=== PATIENT | female | born 1990 | race Caucasian/White ===

== ENCOUNTER 2020-02-14 10:02 | Outpatient (REF) | payer MEDICAID, SELFPAY ==
[2020-02-15 09:28] LABS: CT PCR NOT DETECTED (Not Detect.); NG PCR NOT DETECTED (Not Detect.)
== END 2020-02-14 10:03 | disposition home or self-care (01) ==
LOC: HO.LAB 10:02
PROVIDERS: Visit Provider Advanced Practice Midwife
DX: Z30.430 Encounter for insertion of intrauterine contraceptive device (principal); Z79.01 Long term (current) use of anticoagulants
CPT/HCPCS: 58300; 87491; 87591

== ENCOUNTER 2020-03-02 11:19 | Outpatient (REF) | payer MEDICAID, SELFPAY ==
--- NOTE | 2020-03-02 11:23 | US_ITS ---
EXAMINATION: US PELVIS COMPLETE. CLINICAL INFORMATION: Transvaginal and transabdominal ultrasound of the pelvis is performed. COMPARISON: Transvaginal ultrasound pelvis 12/29/2019. TECHNIQUE: Routine transabdominal and transvaginal ultrasound of the pelvis is performed. FINDINGS: The uterus is anteverted, anteflexed measuring 7.8 cm in length, 4.3 cm in AP and 4.7 cm wide. There is intrauterine IUD noted in characterization. No focal uterine lesions seen. There are small nabothian cysts in the cervix. Right ovary measures 4.0 x 2.0 x 2.3 cm volume) 6 mL. There is anechoic cyst measuring 2.1 x 1.7 x 1.7 cm. Previously right ovary measured 2.2 x 2.1 x 1.4 cm. Left ovary measures 2.8 x 1.1 x 1.4 cm and volume 2.9 mL. There is a hyperechoic focal area in the left ovary measuring 0.5 x 0.3 x 0.4 cm. Previously left ovary measured 2.6 x 2.4 x 2.2 cm. There is no free fluid in cul-de-sac. US/US pelvic complete IMPRESSION: Anteverted uterus with IUD in correct position. Small nabothian cysts in cervix. Simple cyst right ovary. Hyperechoic focal area in the left ovary, likely ruptured complex cyst seen previously.
--- NOTE | 2020-03-02 11:23 | US_ITS ---
EXAMINATION: US PELVIS COMPLETE. CLINICAL INFORMATION: Transvaginal and transabdominal ultrasound of the pelvis is performed. COMPARISON: Transvaginal ultrasound pelvis 12/29/2019. TECHNIQUE: Routine transabdominal and transvaginal ultrasound of the pelvis is performed. FINDINGS: The uterus is anteverted, anteflexed measuring 7.8 cm in length, 4.3 cm in AP and 4.7 cm wide. There is intrauterine IUD noted in characterization. No focal uterine lesions seen. There are small nabothian cysts in the cervix. Right ovary measures 4.0 x 2.0 x 2.3 cm volume) 6 mL. There is anechoic cyst measuring 2.1 x 1.7 x 1.7 cm. Previously right ovary measured 2.2 x 2.1 x 1.4 cm. Left ovary measures 2.8 x 1.1 x 1.4 cm and volume 2.9 mL. There is a hyperechoic focal area in the left ovary measuring 0.5 x 0.3 x 0.4 cm. Previously left ovary measured 2.6 x 2.4 x 2.2 cm. There is no free fluid in cul-de-sac. US/US transvaginal IMPRESSION: Anteverted uterus with IUD in correct position. Small nabothian cysts in cervix. Simple cyst right ovary. Hyperechoic focal area in the left ovary, likely ruptured complex cyst seen previously.
== END 2020-03-02 11:20 | disposition home or self-care (01) ==
LOC: HO.US 11:19
PROVIDERS: Visit Provider Advanced Practice Midwife
DX: N83.209 Unspecified ovarian cyst, unspecified side (principal); Z97.5 Presence of (intrauterine) contraceptive device
CPT/HCPCS: 76830; 76856

== ENCOUNTER 2020-04-14 10:28 | Outpatient (REF) | payer MEDICAID, SELFPAY ==
[2020-04-16 11:59] LABS: BV Int Neg Control Negative (Negative); BV Int Pos Control Positive (Positive)
[2020-04-23 15:45] LABS: C. trachomatis RNA TMA NOT DETECTED
[2020-04-23 15:46] LABS: N. gonorrhoeae RNA TMA NOT DETECTED
== END 2020-04-14 10:29 | disposition home or self-care (01) ==
LOC: HO.LAB 10:28
PROVIDERS: Visit Provider Obstetrics & Gynecology
DX: B37.3 Candidiasis of vulva and vagina (principal); R31.29 Other microscopic hematuria; Z11.8 Encounter for screening for other infectious and parasitic diseases; Z11.3 Encounter for screening for infections with a predominantly sexual mode of transmission; Z97.5 Presence of (intrauterine) contraceptive device
CPT/HCPCS: 87086; 87147; 87480; 87491; 87510; 87591; 87660; 99212

== ENCOUNTER 2020-05-01 15:22 | Outpatient (REF) | payer MEDICAID, SELFPAY ==
[2020-05-01 18:30] LABS: Hematocrit 37.5 % (37-47); Hemoglobin 11.7 g/dl (12.0-16.0); Mean Corpuscular HGB Conc 31.2 g/dl (31.0-35.0); Mean Corpuscular Volume 86.4 fL (80-98); Mean Platelet Volume 9.8 fL (9.4-12.3); Platelet Count 350 X10*3/uL (160-400); Red Blood Count 4.34 X10*6/uL (4.20-5.50); Red Cell Distribution Width 14.1 % (11.0-16.0); White Blood Count 8.5 X10*3/uL (4.8-10.8)
[2020-05-03 21:42] LABS: C. trachomatis RNA TMA NOT DETECTED (NOT DETECTED); N. gonorrhoeae RNA TMA NOT DETECTED (NOT DETECTED)
== END 2020-05-01 15:23 | disposition home or self-care (01) ==
LOC: HO.LAB 15:22
PROVIDERS: Visit Provider Obstetrics & Gynecology
DX: N92.0 Excessive and frequent menstruation with regular cycle (principal); B37.3 Candidiasis of vulva and vagina; Z30.09 Encounter for other general counseling and advice on contraception; Z79.899 Other long term (current) drug therapy; Z86.711 Personal history of pulmonary embolism
CPT/HCPCS: 36415; 81025; 85027; 87491; 87591; 99212

== ENCOUNTER → 2020-05-04 14:54 | Outpatient (BNVA) | payer MEDICAID, SELFPAY | PROVIDERS: Visit Provider Obstetrics & Gynecology | DX: Z76.89 Persons encountering health services in other specified circumstances (principal) ==

== ENCOUNTER 2020-10-19 14:19 | Outpatient (REF) | payer MEDICAID, SELFPAY ==
[2020-10-20 09:01] LABS: CT PCR NOT DETECTED (Not Detect.); NG PCR NOT DETECTED (Not Detect.)
== END 2020-10-19 14:20 | disposition home or self-care (01) ==
LOC: HO.LAB 14:19
PROVIDERS: Visit Provider Obstetrics & Gynecology
DX: Z30.09 Encounter for other general counseling and advice on contraception (principal)
CPT/HCPCS: 87491; 87591; 99212

== ENCOUNTER → 2020-12-12 15:26 | Outpatient (BNVA) | payer MEDICAID, SELFPAY | PROVIDERS: Visit Provider Obstetrics & Gynecology ==

== ENCOUNTER → 2021-01-02 14:34 | Outpatient (BNVA) | payer MEDICAID, SELFPAY | PROVIDERS: Visit Provider Obstetrics & Gynecology | DX: Z30.430 Encounter for insertion of intrauterine contraceptive device (principal) | CPT/HCPCS: 58300; J7300 ==

== ENCOUNTER → 2021-04-17 09:14 | Outpatient (BNVA) | payer MEDICAID, SELFPAY | PROVIDERS: Visit Provider Obstetrics & Gynecology | DX: Z30.431 Encounter for routine checking of intrauterine contraceptive device (principal) | CPT/HCPCS: 99212 ==

== ENCOUNTER → 2021-08-31 13:53 | Outpatient (BNVA) | payer MEDICAID, SELFPAY | PROVIDERS: Visit Provider Nurse Practitioner | DX: K21.9 Gastro-esophageal reflux disease without esophagitis (principal); K64.9 Unspecified hemorrhoids; R31.29 Other microscopic hematuria; D64.9 Anemia, unspecified; N92.0 Excessive and frequent menstruation with regular cycle | CPT/HCPCS: 99212 ==

== ENCOUNTER 2021-09-04 14:40 | Outpatient (REF) | payer MEDICAID, SELFPAY ==
[2021-09-04 14:52] LABS: MANUAL DIFF FLAG NO
[2021-09-04 14:54] LABS: Basophils Absolute Auto 0.1 X10*3/uL (0.0-0.2); Basophils Percent Auto 0.6 % (0-2); Eosinophils Absolute Auto 0.1 X10*3/uL (0.0-0.4); Eosinophils Percent Auto 1.6 % (0-4); Hemoglobin 11.4 g/dl (12.0-16.0); Imm Gran Abs Auto 0.02 X10*3/uL (0.00-0.03); Imm Gran Pct Auto 0.2 % (0.0-0.4); Lymphocytes Absolute Auto 1.9 X10*3/uL (1.2-4.9); Lymphocytes Percent Auto 23.9 % (20-40); Mean Corpuscular HGB Conc 31.7 g/dl (31.0-35.0); Mean Corpuscular Hemoglobin 27.5 pg (27.0-33.0); Mean Corpuscular Volume 86.7 fL (80.0-98.0); Mean Platelet Volume 9.3 fL (9.4-12.3); Monocytes Absolute Auto 0.7 X10*3/uL (0.1-1.2); Neutrophils Absolute Auto 5.2 x10*3/uL (2.0-8.3); Neutrophils Percent Auto 64.7 % (45-73); Platelet Count 323 X10*3/uL (160-400); Red Blood Count 4.15 X10*6/uL (4.20-5.50); Red Cell Distribution Width 14.4 % (11.0-16.0); White Blood Count 8.1 X10*3/uL (4.8-10.8)
[2021-09-04 15:20] LABS: Alanine Aminotransferase 22 U/L (0-31); Albumin Level 4.2 g/dL (3.5-5.0); Alkaline Phosphatase 74 U/L (39-117); Anion Gap 10 (12-20); Aspartate Amino Transferase 23 U/L (5-31); Bilirubin Total 0.2 mg/dL (0.0-1.0); Blood Urea Nitrogen 13 mg/dL (9-16); Calcium 9.4 mg/dL (8.4-10.2); Carbon Dioxide 27 mmol/L (22-29); Chloride 105 mmol/L (96-108); Estimated Glomerular Filt Rate > 60; Glucose Random 86 mg/dL (60-115); Potassium 3.8 mmol/L (3.3-5.1); Sodium 138 mmol/L (135-145); Total Protein 7.2 g/dL (6.5-8.0)
[2021-09-04 15:36] LABS: Ferritin 18 ng/mL (10-122)
== END 2021-09-04 14:41 | disposition home or self-care (01) ==
LOC: HO.LAB 14:40
PROVIDERS: Visit Provider Nurse Practitioner
DX: D64.9 Anemia, unspecified (principal); K64.9 Unspecified hemorrhoids; N92.0 Excessive and frequent menstruation with regular cycle; R31.29 Other microscopic hematuria
CPT/HCPCS: 36415; 80053; 82728; 85025

== ENCOUNTER 2022-11-06 11:35 | Outpatient (REF) | payer MEDICAID, SELFPAY ==
[2022-11-06 12:40] LABS: MANUAL DIFF FLAG NO
[2022-11-06 12:57] LABS: Basophils Absolute Auto 0.1 X10*3/uL (0.0-0.2); Basophils Percent Auto 0.8 % (0-2); Eosinophils Absolute Auto 0.2 X10*3/uL (0.0-0.4); Eosinophils Percent Auto 2.9 % (0-4); Hematocrit 33.5 % (37.0-47.0); Hemoglobin 10.2 g/dl (12.0-16.0); Imm Gran Abs Auto 0.01 X10*3/uL (0.00-0.03); Imm Gran Pct Auto 0.2 % (0.0-0.4); Lymphocytes Absolute Auto 1.6 X10*3/uL (1.2-4.9); Lymphocytes Percent Auto 26.5 % (20-40); Mean Corpuscular HGB Conc 30.4 g/dl (31.0-35.0); Mean Corpuscular Hemoglobin 24.5 pg (27.0-33.0); Mean Corpuscular Volume 80.5 fL (80.0-98.0); Mean Platelet Volume 9.7 fL (9.4-12.3); Monocytes Absolute Auto 0.6 X10*3/uL (0.1-1.2); Monocytes Percent Auto 9.5 % (2-11); Neutrophils Absolute Auto 3.7 x10*3/uL (2.0-8.3); Neutrophils Percent Auto 60.1 % (45-73); Platelet Count 367 X10*3/uL (160-400); Red Blood Count 4.16 X10*6/uL (4.20-5.50); Red Cell Distribution Width 16.5 % (11.0-16.0); White Blood Count 6.1 X10*3/uL (4.8-10.8)
[2022-11-06 14:22] LABS: Alanine Aminotransferase 67 U/L (0-31); Albumin Level 4.3 g/dL (3.5-5.0); Alkaline Phosphatase 105 U/L (39-117); Anion Gap 12 (12-20); Aspartate Amino Transferase 39 U/L (5-31); Bilirubin Total 0.3 mg/dL (0.0-1.0); Blood Urea Nitrogen 18 mg/dL (9-16); Calcium 9.8 mg/dL (8.4-10.2); Carbon Dioxide 27 mmol/L (22-29); Chloride 104 mmol/L (96-108); Estimated Glomerular Filt Rate > 60; Glucose Random 86 mg/dL (60-115); Potassium 3.8 mmol/L (3.3-5.1); Sodium 139 mmol/L (135-145); Total Protein 7.6 g/dL (6.5-8.0)
[2022-11-06 14:37] LABS: Ferritin 25 ng/mL (10-122)
== END 2022-11-06 11:36 | disposition home or self-care (01) ==
LOC: HO.LAB 11:35
PROVIDERS: Visit Provider Nurse Practitioner
DX: D64.9 Anemia, unspecified (principal); K21.9 Gastro-esophageal reflux disease without esophagitis; K64.9 Unspecified hemorrhoids; N92.0 Excessive and frequent menstruation with regular cycle; R31.29 Other microscopic hematuria
CPT/HCPCS: 36415; 80053; 82728; 85025; 99213

== ENCOUNTER 2022-11-06 11:35 | Outpatient (AMB) | payer MEDICAID, SELFPAY ==
--- NOTE | 2022-11-06 11:43 | A.OFFVIS_ITS ---
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 She tells me she had a baby, then she had clots in my lungs. They do not know why this happened. It was after she gave . She says her hemorrhoids are resolved, but in the next sentence she says she is having rectal bleeding and needs a colonoscopy.? She is on omeprazole 40mg qd but has breakthrough GERD about 3 times a week. She can not ID any particular food triggers for this, she avoids spicy foods and most GERD triggers. She has pain at the epigastric area when she has pain. There is no time of day. She denies CIC or diarrhea.? She says she has been on oral iron supplement for a month or 2. She is taking her o2o in the afternoon, and I recommend that she take it qam ac instead. She asks if o2o causes cancer, and I tell her that retirement studies do not indicate this. I think she has this medicine confused with the zantac recall a while ago. We will give her some famotidine. She says that her doctors concerned about her anemia and that she needs an EGD and colonoscopy.? However, we did an EGD and colonoscopy in 2017 for exactly the same reasons and this is a relatively young woman with a history of heavy menses, microscopic hematuria and likely poor iron intake.? I do not think that we should be subjecting her to more procedures just on this basis.? I am going to get some fit testing and recheck her CBC and her ferritin levels and will go from there.? I also think it is very likely that she still has bleeding hemorrhoids especially since she just gave .? It is also likely since she had blood clots that she was treated with some level of anticoagulation recently. Return office visit in 6 weeks. (2) Hemorrhoids: ?Comment: With history of bleeding ?Code(s): K64.9 - Unspecified hemorrhoids (3) Menorrhagia: ?Code(s): N92.0 - Excessive and frequent menstruation with regular cycle (4) Microscopic hematuria: ?Code(s): R31.29 - Other microscopic hematuria (5) Anemia: ?Code(s): D64.9 - Anemia, unspecified ? ? ? Orders: Orders FITS Today D64.9 - Anemia, un specified, K64.9 - Unspecified hemor rhoids, N92.0 - Ex cessive and freque nt menstruation wi th regular cycle, R31.29 - Other claudia roscopic hematuria ? Comprehensive Met. Panel Today D64.9 - Anemia, un specified, K64.9 - Unspecified hemor rhoids, N92.0 - Ex cessive and freque nt menstruation wi th regular cycle, R31.29 - Other claudia roscopic hematuria ? Ferritin Today D64.9 - Anemia, un specified, K64.9 - Unspecified hemor rhoids, N92.0 - Ex cessive and freque nt menstruation wi th regular cycle, R31.29 - Other claudia roscopic hematuria ? Complete Blood Cou nt Auto Diff Today D64.9 - Anemia, un specified, K64.9 - Unspecified hemor rhoids, N92.0 - Ex cessive and freque nt menstruation wi th regular cycle, R31.29 - Other claudia roscopic hematuria ? Medications: New famotidine 20 mg? PO DAILY 3 0 tabs 3RF D64.9 - Anemia, un specified ?Patient Instructions: Kaylee Richard Quiero hacerte algunas pruebas para tu anemia. La marcella?n m?s com?n de la anemia en stan rick de parada edad es stan dieta inadecuada y stan menstruaci?n abundante. Contin?e con man pastillas de sara. Le pido que candace algunos estudios de heces para verificar si est? perdiendo sara en man heces y isaac algunos an?lisis de laboratorio b?sicos. Para la acidez estomacal, cambie parada omeprazol y t?biswas a primera hora de la ma?callie con el est?stephanie vac?o. Estoy enviando famotidina para que la tome seg?n sea necesario si tiene alg?n s?ntoma importante. Quiero verlo en 6 semanas para repasar los laboratorios y merlene c?mo le est? funcionando eusebio cambio en el medicamento LABS: Laboratory Tests 09/04/21 09/04/21 14:49 14:49 WBC 8.1 Hgb 11.4 L Hct 36.0 L MCV 86.7 MCH 27.5 Estimated GFR > 60 Ferritin 18 Total Bilirubin 0.2 AST 23 D ALT 22 FITS TEST NOT OBTAINED TODAY'S VISIT Citizen Of [place] #[id number] She says she did the FIT test but the lab told me it wasn't good. We can repeat this. She has been having rectal bleeding still when I have to push. She says her heavy menses have normalized with her IUD. She stopped taking the oral iron about a month ago r/t constipation. We can help with this if we need to re start the oral iron. FROM LAST NOTE She says that her doctors concerned about her anemia and that she needs an EGD and colonoscopy.? However, we did an EGD and colonoscopy in 2017 for exactly the same reasons and this is a relatively young woman with a history of heavy menses, microscopic hematuria and likely poor iron intake.? I do not think that we should be subjecting her to more procedures just on this basis. She slipped on her cellar stairs and has bruising on her right face/cheek and under eye. She is no longer on blood thinners. She has a history of a DVT. ROV 3 weeks. [facility] Medical History Hx of anxiety disorder Hx of chronic sinusitis Hx pulmonary embolism Pre-eclampsia, Surgical History Hx of appendectomy Hx of cholecystectomy Family History Mother Family hx of hypertension Emphysema of lung Son Family history of microcephaly Maternal Grandmother Family history of breast cancer Stroke Father History of stomach cancer Social History Alcohol intake: former Female Reproductive History Menstrual Age of Menarche: 11 Review of Systems Const Denies fatigue, Denies fever(s), Denies night sweats, Denies poor appetite and Denies weight loss Eyes Details: glasses Reports requires corrective lenses ENT Reports Normal hearing present, Denies dental pain, Denies dysphagia, Denies hearing loss, Denies mouth pain, Denies odynophagia, Denies throat swelling, Denies tongue swelling and Reports other (Dentition adequate) Card Reports no additional complaints Resp Reports no additional complaints GI Denies abdominal pain, Denies melena, Denies bloating, Denies hematochezia, Denies constipation, Denies GI cramping, Denies dysphagia, Denies excessive flatus, Denies early satiety, Reports heartburn, Denies diarrhea, Denies nausea, Denies odynophagia, Denies vomiting and Denies hematemesis Skin/Breast Denies pruritus, Denies lesions, Denies rash and Denies jaundice Neuro Reports Normal hearing present and Denies Abnormal speech present Endo Denies fatigue Aller/Immun Denies throat swelling and Denies tongue swelling Physical Exam Vital Signs: Last Vital Signs Pulse 95 11/06/22 11:46 BP 99/57 L 11/06/22 11:46 BMI result Body Mass Index 26.2 Const General: cooperative, no acute distress, well developed and well groomed Nutritional Appearance: average body habitus and well nourished Orientation/consciousness: oriented to person, oriented to place and oriented to time Limitations: language barrier HEENT Other: Have taller size round bruise in purple stage of healing on her right cheek linear bruise underneath her right eye Head: Yes normocephalic Eyes General: appearance normal, both eyes and all related structures Pupils: Equal, round and reactive pupils present Neck Neck: Yes normal visual inspection and Yes no lymphadenopathy Thyroid: Thyroid normal Resp Effort & Inspection: normal respiratory effort and able to speak in complete sentences Auscultation: clear to auscultation bilaterally Cardio Rate: regular rate Rhythm: regular rhythm Heart sounds: Normal, physiologic split S2 sound present Peripheral pulses: radial pulses present and posterior tibial pulses present GI Inspection: No distended and No Abdominal panniculus present Palpation (GI): Soft to palpation, nontender, no guarding, not rigid and No hepatosplenomegaly present Percussion: Yes normal to percussion Auscultation: normal bowel sounds Rectal Exam - Female: deferred Skin General skin exam: no rashes or lesions noted, turgor normal, skin not dry, no jaundice, No spider nevi and no striae Rashes: no rashes Nails: normal Neuro General: oriented to person, oriented to place and oriented to time Cranial nerves: Yes Equal, round and reactive pupils present and Yes Normal hearing present Speech: No Abnormal speech present Extrem General: Yes normal to inspection, No clubbing, No cyanosis and No edema Psych Appearance: grossly normal and well kempt Mental Status: mental status grossly normal Speech and movement: Normal speech and movement present Affect: normal affect Attitude: cooperative Thought process: Normal thought process present and not confabulating Thought content: Normal thought content present Insight: Limited insight present (Psych) Judgement: Limited judgement present (Psych) Results Reviewed Results Reviewed: Laboratory Tests 09/04/21 09/04/21 14:49 14:49 WBC 8.1 Hgb 11.4 L Hct 36.0 L MCV 86.7 MCH 27.5 Estimated GFR > 60 Ferritin 18 Total Bilirubin 0.2 AST 23 D ALT 22 FITS TEST NOT OBTAINED Assessment & Plan Assessment & Plan (1) GERD (gastroesophageal reflux disease): Comment: 2017 scope focal esophagitis Code(s): K21.9 - Gastro-esophageal reflux disease without esophagitis Plan: Citizen Of [place] #[id number] She says she did the FIT test but the lab told me it wasn't good. We can repeat this. She has been having rectal bleeding still when I have to push. She says her heavy menses have normalized with her IUD. She stopped taking the oral iron about a month ago r/t constipation. We can help with this if we need to re start the oral iron. FROM LAST NOTE She says that her doctors concerned about her anemia and that she needs an EGD and colonoscopy.? However, we did an EGD and colonoscopy in 2017 for exactly the same reasons and this is a relatively young woman with a history of heavy menses, microscopic hematuria and likely poor iron intake.? I do not think that we should be subjecting her to more procedures just on this basis. She slipped on her cellar stairs and has bruising on her right face/cheek and under eye. She is no longer on blood thinners. She has a history of a DVT. ROV 3 weeks. (2) Hemorrhoids: Comment: With history of bleeding Code(s): K64.9 - Unspecified hemorrhoids (3) Anemia: Code(s): D64.9 - Anemia, unspecified (4) Menorrhagia: Code(s): N92.0 - Excessive and frequent menstruation with regular cycle (5) Microscopic hematuria: Code(s): R31.29 - Other microscopic hematuria Orders: Orders Comprehensive Met. Panel Today D64.9 - Anemia, unspecified, K21.9 - Gastro-esophageal reflux disease without esophagitis Ferritin Today D64.9 - Anemia, unspecified, K21.9 - Gastro-esophageal reflux disease without esophagitis Complete Blood Count Auto Diff Today D64.9 - Anemia, unspecified, K21.9 - Gastro-esophageal reflux disease without esophagitis FITS Today D64.9 - Anemia, unspecified, K21.9 - Gastro-esophageal reflux disease without esophagitis Medications: Changed From omeprazole 40 mg PO DAILY To omeprazole 40 mg (2 x 20 mg) PO QAM 30 caps 6RF Refilled famotidine 20 mg PO DAILY 30 tabs 6RF Coding Level of Care Code Est Pt Level 3 (16270) Diagnoses GERD (gastroesophageal reflux disease) K21.9 Hemorrhoids K64.9 Anemia D64.9 Menorrhagia N92.0 Microscopic hematuria R31.29
[2022-11-06 11:46] VITALS: BP 99/57; PULSE 95; BMI 26.2
== END 2022-11-06 12:10 | disposition home or self-care (01) ==
PROVIDERS: Visit Provider Nurse Practitioner
DX: K21.9 Gastro-esophageal reflux disease without esophagitis (principal); K64.9 Unspecified hemorrhoids; D64.9 Anemia, unspecified; N92.0 Excessive and frequent menstruation with regular cycle; R31.29 Other microscopic hematuria
CPT/HCPCS: 99213

== ENCOUNTER 2022-12-10 11:26 | Outpatient (AMB) | payer MEDICAID, SELFPAY ==
[2022-12-10 11:28] VITALS: BP 93/59; PULSE 73; BMI 26.4
--- NOTE | 2022-12-10 11:28 | A.OFFVIS_ITS ---
Intake Vital Signs 12/10/22 11:28 Height 5 ft 3 in Weight 149 lb 0.52 oz BMI 26.4 BP 93/59 L Blood Pressure Location Lt brachial Position Sitting Pulse 73 Intake Visit Reasons: 3 week fu Intake Note: Patient presents to in office visit today in 3 week follow up of GERD. CC: Patient reports that medications has been helping with symptoms. 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 We can repeat this. She has been having rectal bleeding still when I have to push. She says her heavy menses have normalized with her IUD. She stopped taking the oral iron about a month ago r/t constipation. We can help with this if we need to re start the oral iron. FROM LAST NOTE She says that her doctors concerned about her anemia and that she needs an EGD and colonoscopy.? However, we did an EGD and colonoscopy in 2017 for exactly the same reasons and this is a relatively young woman with a history of heavy menses, microscopic hematuria and likely poor iron intake.? I do not think that we should be subjecting her to more procedures just on this basis. She slipped on her cellar stairs and has bruising on her right face/cheek and under eye. She is no longer on blood thinners.? She has a history of a DVT. ROV 3 weeks. (2) Hemorrhoids: ?Comment: With history of bleeding ?Code(s): K64.9 - Unspecified hemorrhoids (3) Anemia: ?Code(s): D64.9 - Anemia, unspecified (4) Menorrhagia: ?Code(s): N92.0 - Excessive and frequent menstruation with regular cycle (5) Microscopic hematuria: ?Code(s): R31.29 - Other microscopic hematuria ? ? ? Orders: Orders Comprehensive Met. Panel Today D64.9 - Anemia, un specified, K21.9 - Gastro-esophageal reflux disease wi thout esophagitis ? Ferritin Today D64.9 - Anemia, un specified, K21.9 - Gastro-esophageal reflux disease wi thout esophagitis ? Complete Blood Cou nt Auto Diff Today D64.9 - Anemia, un specified, K21.9 - Gastro-esophageal reflux disease wi thout esophagitis ? FITS Today D64.9 - Anemia, un specified, K21.9 - Gastro-esophageal reflux disease wi thout esophagitis ? Medications: Changed From omeprazole 40 mg? PO DAILY ? ? To omeprazole 40 mg (2 x 20 mg) PO QAM 30 caps 6RF ? ? Refilled famotidine 20 mg? PO DAILY 30 tabs 6RF ? ? . A LABS: Laboratory Tests 11/06/22 11/06/22 12:39 12:39 WBC 6.1 RBC 4.16 L Hgb 10.2 L Hct 33.5 L MCV 80.5 MCH 24.5 L Plt Count 367 Estimated GFR > 60 Ferritin 25 Total Bilirubin 0.3 AST 39 H ALT 67 H Alkaline Phosphata se 105 FIT TEST NOT OBTAINED TODAY'S VISIT She is due for a colonoscopy r/t TA. She is agreeable to having this scheduled. She has not yet performed the FIT test, the last time it was not done properly. She has the cards, but has not yet performed it. I encourage her to do so. She has not been taking oral iron, I will order this for her. She continues on her omeprazole and famotidine with good control of her GERD. There are no prior problems with anesthesia or sedation. There are no current cardiac or respiratory problems. She has a history of pulmonary embolism after giving related to pre eclampsia.. NO ID problems She has a hx of TA and FHX of crc. Return office visit in 3 months. [facility] Medical History Hx of anxiety disorder Hx of chronic sinusitis Hx pulmonary embolism Pre-eclampsia, Surgical History Hx of appendectomy Hx of cholecystectomy Family History Mother Family hx of hypertension Emphysema of lung Son Family history of microcephaly Maternal Grandmother Family history of breast cancer Stroke Father History of stomach cancer Social History Alcohol intake: former Patient Tobacco Use Status: Never used Tobacco Female Reproductive History Menstrual Age of Menarche: 11 Review of Systems Const Denies fatigue, Denies fever(s), Denies night sweats, Denies poor appetite and Denies weight loss Eyes Details: glasses Reports requires corrective lenses ENT Reports Normal hearing present, Denies dental pain, Denies dysphagia, Denies hearing loss, Denies mouth pain, Denies odynophagia, Denies throat swelling, Denies tongue swelling and Reports other (Dentition adequate) Card Reports no additional complaints Resp Reports no additional complaints GI Denies abdominal pain, Denies melena, Denies bloating, Denies hematochezia, Denies constipation, Denies GI cramping, Denies dysphagia, Denies excessive flatus, Denies early satiety, Reports heartburn, Denies diarrhea, Denies nausea, Denies odynophagia, Denies vomiting and Denies hematemesis Skin/Breast Denies pruritus, Denies lesions, Denies rash and Denies jaundice Neuro Reports Normal hearing present and Denies Abnormal speech present Endo Denies fatigue Aller/Immun Denies throat swelling and Denies tongue swelling Physical Exam Vital Signs: Last Vital Signs Pulse 73 12/10/22 11:28 BP 93/59 L 12/10/22 11:28 BMI result Body Mass Index 26.4 Const General: cooperative, no acute distress, well developed and well groomed Nutritional Appearance: average body habitus and well nourished Orientation/consciousness: oriented to person, oriented to place and oriented to time Limitations: No language barrier HEENT Head: Yes normocephalic and Yes atraumatic Eyes General: appearance normal, both eyes and all related structures Pupils: Equal, round and reactive pupils present Neck Neck: Yes normal visual inspection and Yes no lymphadenopathy Thyroid: Thyroid normal Resp Effort & Inspection: normal respiratory effort and able to speak in complete sentences Auscultation: clear to auscultation bilaterally Cardio Rate: regular rate Rhythm: regular rhythm Heart sounds: Normal, physiologic split S2 sound present Peripheral pulses: radial pulses present and posterior tibial pulses present GI Inspection: No distended and No Abdominal panniculus present Palpation (GI): Soft to palpation, nontender, no guarding, not rigid and No hepatosplenomegaly present Percussion: Yes normal to percussion Auscultation: normal bowel sounds Rectal Exam - Female: deferred Skin General skin exam: no rashes or lesions noted, turgor normal, skin not dry, no jaundice, No spider nevi and no striae Rashes: no rashes Nails: normal Neuro General: oriented to person, oriented to place and oriented to time Cranial nerves: Yes Equal, round and reactive pupils present and Yes Normal hear ing present Speech: No Abnormal speech present Extrem General: Yes normal to inspection, No clubbing, No cyanosis and No edema Psych Appearance: grossly normal and well kempt Mental Status: mental status grossly normal Speech and movement: Normal speech and movement present Affect: normal affect Attitude: cooperative Thought process: Normal thought process present and not confabulating Thought content: Normal thought content present Insight: Limited insight present (Psych) Judgement: Limited judgement present (Psych) Results Reviewed Results Reviewed: Laboratory Tests 11/06/22 11/06/22 12:39 12:39 WBC 6.1 Hgb 10.2 L Hct 33.5 L MCV 80.5 MCH 24.5 L Plt Count 367 Estimated GFR > 60 Total Bilirubin 0.3 AST 39 H ALT 67 H Alkaline Phosphatase 105 Assessment & Plan Assessment & Plan (1) GERD (gastroesophageal reflux disease): Comment: 2017 scope focal esophagitis Code(s): K21.9 - Gastro-esophageal reflux disease without esophagitis Plan: She is due for a colonoscopy r/t TA. She is agreeable to having this scheduled. She has not yet performed the FIT test, the last time it was not done properly. She has the cards, but has not yet performed it. I encourage her to do so. She has not been taking oral iron, I will order this for her. She continues on her omeprazole and famotidine with good control of her GERD. There are no prior problems with anesthesia or sedation. There are no current cardiac or respiratory problems. She has a history of pulmonary embolism after giving related to pre eclampsia.. NO ID problems She has a hx of TA and FHX of crc. Return office visit in 3 months. (2) Hemorrhoids: Comment: With history of bleeding Code(s): K64.9 - Unspecified hemorrhoids (3) Anemia: Code(s): D64.9 - Anemia, unspecified (4) Family history of colon cancer: Comment: 2017 scope hemorrhoids only repeat 2021 Code(s): Z80.0 - Family history of malignant neoplasm of digestive organs (5) Pre-op examination: Code(s): Z01.818 - Encounter for other preprocedural examination Orders: Orders Colonoscopy - GI Use Only 12/10/22 Z80.0 - Family history of malignant neoplasm of digestive organs Medications: New omeprazole 40 mg PO DAILY 30 caps 6RF Refilled ferrous sulfate (Samantha-Time) 325 mg PO BID 60 tabs 4RF famotidine 20 mg PO DAILY 30 tabs 6RF Coding Level of Care Code Est Pt Level 4 (97686) Diagnoses GERD (gastroesophageal reflux disease) K21.9 Hemorrhoids K64.9 Anemia D64.9 Family history of colon cancer Z80.0 Pre-op examination Z01.818
== END 2022-12-10 12:21 | disposition home or self-care (01) ==
PROVIDERS: Visit Provider Nurse Practitioner
DX: K21.9 Gastro-esophageal reflux disease without esophagitis (principal); K64.9 Unspecified hemorrhoids; D64.9 Anemia, unspecified; Z80.0 Family history of malignant neoplasm of digestive organs; Z01.818 Encounter for other preprocedural examination
CPT/HCPCS: 99214

== ENCOUNTER → 2022-12-10 11:26 | Outpatient (BNVA) | payer MEDICAID, SELFPAY | PROVIDERS: Visit Provider Nurse Practitioner | DX: Z01.818 Encounter for other preprocedural examination (principal); K21.9 Gastro-esophageal reflux disease without esophagitis; K64.9 Unspecified hemorrhoids; D64.9 Anemia, unspecified; Z80.0 Family history of malignant neoplasm of digestive organs | CPT/HCPCS: 99212 ==

== ENCOUNTER 2023-01-22 18:21 | Outpatient (REF) | payer MEDICAID, SELFPAY ==
[2023-01-22 19:18] LABS: Influenza A PCR NEGATIVE (Negative); Influenza B PCR NEGATIVE (Negative); Resp Syncy Virus RNA Qual PCR NEGATIVE (Negative); SARS COV2 PCR INHOUSE NEGATIVE (Negative)
== END 2023-01-22 18:22 | disposition home or self-care (01) ==
LOC: HO.HHCLNP 18:21
PROVIDERS: Visit Provider Emergency Medicine
DX: Z20.822 Contact with and (suspected) exposure to COVID-19 (principal); R68.89 Other general symptoms and signs
CPT/HCPCS: 0241U

== ENCOUNTER 2023-05-17 14:48 | Emergency (ER) | payer MEDICAID, SELFPAY ==
[2023-05-17 14:54] VITALS: BP 113/71; PULSE 106; RESP 18; TEMP 37.8; O2SAT 100; BMI 27.4
--- NOTE | 2023-05-17 14:54 | ED.GENADULT ---
HPI - General Adult General Chief complaint: Upper Respiratory Symptoms Stated complaint: body aches fever pressure on chest Time Seen by Provider: 05/17/23 15:04 Source: patient Mode of arrival: ambulatory Limitations: no limitations History of Present Illness HPI narrative: patient is a 32-year-old female who presents to the emergency department for evaluation of upper respiratory symptoms Including intermittent fever responding to Tylenol, productive cough with clear phlegm, chest discomfort felt only while coughing. Denies known sick contacts. Denies dizziness, lightheadedness, shortness of breath difficulty breathing, nausea, vomiting, abdominal pain, numbness or tingling of the extremities. Related Data Home Medications Medication Instructions Recorded Confirmed acetaminophen 500 mg tablet 500 mg PO Q6H PRN 08/31/21 cetirizine 10 mg tablet 10 mg PO DAILY 08/31/21 02/25/23 escitalopram oxalate 10 mg tablet 20 mg PO DAILY 08/31/21 02/25/23 (Lexapro) fluticasone propionate 50 1 - 2 spray intranasal DAILY PRN 08/31/21 02/25/23 mcg/actuation nasal Nasal Congestion spray,suspension Previous Rx's Medication Instructions Recorded famotidine 20 mg tablet 20 mg PO DAILY #30 tabs 12/10/22 ferrous sulfate 325 mg (65 mg 325 mg PO BID #60 tabs 12/10/22 iron) tablet (Samantha-Time) omeprazole 40 mg capsule,delayed 40 mg PO DAILY #30 caps 12/10/22 release bisacodyl 5 mg tablet,delayed 10 mg (2 x 5 mg) PO BEDTIME 2 days 05/14/23 release (Dulcolax (bisacodyl)) #4 tabs peg 3350-electrolytes 236 240 ml PO Q10M 1 day #4,000 mL 05/14/23 gram-22.74 gram-6.74 gram-5.86 gram solution (Golytely) Allergies Allergy/AdvReac Type Severity Reaction Status Date / Time morphine [MORPHINE] Allergy Unknown hives, hot Verified 11/06/22 11:45 flash Review of Systems Review of Systems: Yes all other systems are reviewed and are negative PMFSH Past Medical History Attestation statement: The following information was validated with the patient. Source: old records reviewed Onset Date is defined in the Problem List Problems that require an onset date and time if occurred within 24 hrs of arrival to the ED Aortic Dissection and Rupture; Neurologic impairment; Cardiopulmonary Arrest; Endotracheal Intubation; Insertion or Replacement of Mechanical Circulatory Assist Device Medical History GERD (gastroesophageal reflux disease) Hx of anxiety disorder Pre-eclampsia, Hx pulmonary embolism Hx of chronic sinusitis Surgical History Hx of appendectomy Hx of cholecystectomy Family History Family History Mother Family hx of hypertension Emphysema of lung Son Family history of microcephaly Maternal Grandmother Family history of breast cancer Stroke Father History of stomach cancer Social History Social History Alcohol intake: former Patient Tobacco Use Status: Never used Tobacco Advance Directives: No Advance Directives Information Provided: No Physical Exam ED Vital Signs: Vital Signs - 24 hr 05/17/23 14:54 05/17/23 15:50 Temperature 100.1 F 98.7 F Pulse Rate 106 H 98 Respiratory Rate 18 19 Blood Pressure 113/71 116/72 Pulse Oximetry 100 98 Oxygen Delivery Method Room Air Room Air BMI result Body Mass Index 27.4 Appearance: Alert.?Oriented to person, place and time. No acute distress.?Normal affect. Eyes: Pupils equal, round and reactive to light.? ENT: Pharynx normal.?? TM normal bilaterally. Neck: Normal inspection.? Neck supple.?? No rigidity. No cervical lymphadenopathy. CVS: Heart sounds normal. Normal heart rate and rhythm.? Pulses normal.?? Respiratory: No respiratory distress.? Lung sounds clear to auscultation bilaterally?? Abdomen: Soft and non-tender. Normoactive bowel sounds. Skin: Skin warm and dry.? Normal skin color.?? Extremities: No lower extremity edema.? No calf ttp? Neuro: Moves all extremities spontaneously. Sensation intact bilaterally. CN II-XII intact. No focal neuro deficits. Ambulates with normal steady gait. Course Course Course Narrative: This is a rapid medical exam: Additional HPI, ROS, PE not included below will be deferred to primary provider. Patient is a 32-year-old female with history of PE, GERD, anxiety, pre-eclampsia presenting to the emergency department with complaint of fever, body aches, cough and shortness of breath since night. Chest pain only with coughing. Last took Tylenol 1g at 11:30 this am. Plan: viral swabs, CXR, EKG Medications Administered Discontinued Medications Generic Name Dose Route Start Last Admin Trade Name Nichelle PRN Reason Stop Dose Admin Ibuprofen 600 mg 05/17/23 14:59 05/17/23 15:02 Ibuprofen 600 Mg Tablet PO 05/17/23 15:00 600 mg ONCE ONE Administration Medical Decision Making Medical Decision Making [facility] Narrative: Patient is a [age] old female presenting for evaluation of upper respiratory symptoms. COVID-19 testing negative. Influenza testing positive. At this time history and physical exam not consistent with ACS/PE/pneumonia, she does have a history of pulmonary embolism that she developed in the end stages of her , in 2019, is no longer anticoagulants nor does she have clinical evidence of DVT, I suspect PE to be unlikely the etiology for her symptoms but rather infectious in nature as she is influenza positive.. Well-appearing, nontoxic, afebrile, no tachypnea/hypoxia. Speaking clear full sentences, ambulatory with steady gait. I offered Tamiflu however she declines. Discussed conservative treatment including rest, hydration, Tylenol/ibuprofen as needed for fever and body aches, saline nasal spray, humidifier, hdez-pir-oibwyso cold medication. Advised to follow-up with primary care provider as needed, discussed reasons to return back to the emergency department. All questions were answered. Patient discharged home in stable condition. Provided with a return to work/school note. Differential Diagnosis Differential Diagnoses: The differential diagnosis associated with the presentation includes ( See narrative above) Admission/Observation Consideration of admission/observation: Escalation of care including admission/observation considered ( see narrative above) Lab Data [facility] Lab Attestation statement: I reviewed the patient's lab results. ( see narrative above) Labs: Lab Results 05/17/23 Range/Units 15:08 COVID-19 (DION) Negative (Negative) COVID-19 Clin Com See Note Influenza Type A (THELMA) Positive A (Negative) Influenza Type B (THELMA) Negative (Negative) Influenza A & B Note See Note Independent Interpretation I performed an independent interpretation of an: EKG Prescription Management I considered prescription management with: Pain Medication ( acetaminophen/ibuprofen) and Antiviral ( See narrative above) Discharge Plan Discharge Clinical Impression: Influenza A Patient Disposition: Home, Self-Care Instructions: Influenza (ED) Additional Instructions: Be sure to rest, stay well hydrated drinking plenty of fluids, eat small frequent meals. You can take ibuprofen 200 mg, 3 tablets (600mg) every 6-8 hours as needed for pain, in addition to Tylenol 500 mg, 2 tablets (1,000mg) every 4-6 hours as needed for pain, but not to exceed 3 doses daily (3,000mg).? Eipm-zfs-iwqculs cold medications may be helpful as well for symptoms. Saline nasal spray, humidifier may be helpful for nasal congestion. You may return to the emergency department with any new or worsening symptoms or concerns. Follow-up with your primary care provider as needed. Should remain out of school/ work until symptoms have resolved and have been without a fever for 24 hours without the use of Tylenol or ibuprofen. Prescriptions: No Action bisacodyl [Dulcolax (bisacodyl)] 5 mg tablet,delayed release (DR/EC) 10 mg PO BEDTIME 2 Days Qty: 4 0RF peg 3350-electrolytes [Golytely] 236-22.74-6.74 -5.86 gram recon soln 240 ml PO Q10M 1 Days Qty: 4000 0RF Rx Instructions: until fecal effluent is clear; do not exceed a total volume of 2,000 mL escitalopram oxalate [Lexapro] 10 mg tablet 20 mg PO DAILY cetirizine 10 mg tablet 10 mg PO DAILY acetaminophen 500 mg tablet 500 mg PO Q6H PRN fluticasone propionate 50 mcg/actuation spray,suspension 1 - 2 spray intranasal DAILY PRN (Reason: Nasal Congestion) ferrous sulfate [Samantha-Time] 325 mg (65 mg iron) tablet 325 mg PO BID Qty: 60 4RF omeprazole 40 mg capsule,delayed release(DR/EC) 40 mg PO DAILY Qty: 30 6RF famotidine 20 mg tablet 20 mg PO DAILY Qty: 30 6RF Referrals: Physician,Unknown J [Physician] - Stand Alone Forms: Work/School Release
--- NOTE | 2023-05-17 14:57 | ECG_ITS ---
Test Reason : CHEST WALL PAIN Blood Pressure : / mmHG Vent. Rate : 097 BPM Atrial Rate : 097 BPM P-R Int : 168 ms QRS Dur : 080 ms QT Int : 334 ms P-R-T Axes : 044 029 037 degrees QTc Int : 424 ms Normal sinus rhythm Normal ECG When compared with ECG of 30-JUN-2019 16:30, No significant change was found Referred By: Nidia Rogers Electronically Signed By:RASHEEDA BARROSO
[2023-05-17] MEDS: Ibuprofen 600 MG TABLET PO (15:02)
[2023-05-17 15:41] LABS: COVID-19 Test Negative (Negative); IDNOW Serial# 08D9AD1C; IDNOW Serial# 152EDE1D; Influenza A Positive (Negative); Influenza B2 Negative (Negative)
[2023-05-17 15:50] VITALS: BP 116/72; PULSE 98; RESP 19; TEMP 37.1; O2SAT 98
--- OUTSIDE RECORDS SUMMARY | 2023-05-17 15:58 | XMS_ITS | Continuity of Care Document ---
Author Name Unknown Organization [facility] ter Address [address] [place] [id number]- Care Team Providers Care Foster Care Worker Name Role Phone Ernestina Santos NP Primary Care Physician [place] [facility] [place] - 04/23/[address] [address]- [facility] Encounter Diagnosis state(Discharge Diagnosis) - 04/21/19 Discharge Disposition: A-D/C Home Attending Physician: Rojelio Guy MD Admitting Physician: Rojelio Guy MD Referring Physician: Rojelio Guy MD Allergies, Adverse Reactions, Alerts Substance Reaction Severity Status Morphine Sulfate O/E - sweating Palpitations - rapid Active Medications cyclobenzaprine 10 mg oral tablet 10 mg, 1, tablet, By Mouth, 3 times a day, PRN, # 20 tablet, Refills 0, Tot. Refills 0, Maintenance, for spasm, 04/23/19 16:52:00 EST, Route to Pharmacy Electronically, [facility]/pharmacy #[id number], 160, cm, 04/21/19 17:19:00 EST, Height, 74.8, kg, 04/21/19 17:... Start Date: 04/23/19 Status: Ordered docusate-senna 50 mg-187 mg oral tablet 2 tablet, By Mouth, Daily at bedtime, # 30 tablet, 0 Refills, Maintenance, 01/26/19 14:19:45 EDT, Tablet, 2 tablet By Mouth Daily at bedtime Start Date: 01/26/19 Status: Ordered enoxaparin 100 mg/mL injectable solution = 100 mg, Subcutaneous Injection, Daily, for 30 days, *Note: Treatment = 1.5mg/kg/day, renal dosing= 1mg/kg/day*, # 30 each, 5 Refills, Acute 10/20/19 16:50:00 EDT, 04/23/19 16:50:00 EST, [facility]/pharmacy #[id number], 160, cm, 04/21/19 17:19:00 EST, Height, 74... Start Date: 04/23/19 Stop Date: 10/20/19 Status: Ordered NIFEdipine 30 mg oral tablet, extended release 30 mg, 1, tablet, By Mouth, 2 times a day, # 90 tablet, Refills 0, Tot. Refills 0, Maintenance, 04/23/19 16:49:00 EST, Route to Pharmacy Electronically, [facility]/pharmacy #[id number], 160, cm, 04/21/19 17:19:00EST, Height, 74.8, kg, 04/21/19 17:19:00 EST, Dry W... Start Date: 04/23/19 Status: Ordered Multivitamins By Mouth, Daily, 0 Refills, Maintenance Start Date: 12/02/11 Status: Ordered simethicone 125 mg oral tablet 1 tablet = 125 mg, By Mouth, 3 times a day after meals and bedtime, PRN for gas, # 60 tablet, 0 Refills, Maintenance, 01/26/19 14:19:51 EDT, Tablet Start Date: 01/26/19 Status: Ordered Tylenol 325 mg oral capsule 2 capsule = 650 mg, By Mouth, Every 4 hours, PRN as needed for fever, # 90 capsule, 0 Refills, Maintenance, 01/26/19 14:19:43 EDT, Capsule Start Date: 01/26/19 Status: Ordered Problem List Condition Effective Dates Status Health Status Inform ant Abdominal pain - (Confirmed) Active Chronic GERD(Confirmed) Active Migraine(Confirmed) Active (Confirmed) Active Preeclampsia, severe(Confirmed) Active Diagnosis Diagnosis Type Effective Dates Health Status Clinical Service Informant state Discharge Diagnosis 04/21/19 Vital Signs Most recent to oldest [Reference Range]: 1 2 3 Height 160 cm (04/21/19 5:19 PM) 160 cm (04/21/19 4:39 PM) Weight 74.8 kg (04/21/19 5:19 PM) 78.2 kg (04/21/19 4:39 PM) Oxygen Saturation [94-100 %] 99 % (04/23/19 1:45 PM) 98 % (04/23/19 9:01 AM) 99 % (04/22/19 8:53 PM) Pulse Rate [55-90 bpm] 78 bpm (04/23/19 6:46 AM) 70 bpm (04/22/19 6:19 PM) 64 bpm (04/22/19 6:15 AM) Body Mass Index [18.5-24.99] 29.22 *H* (04/21/19 5:19 PM) 30.55 *>HHI* (04/21/19 4:39 PM) Blood Pressure [90-138/55-84 mm Hg] 120/75mm Hg (04/23/19 4:15 PM) 119/76mm Hg (04/23/19 1:45 PM) 126/75mm Hg (04/23/19 11:08 AM) Respiratory Rate [16-30 br/min] 16 br/min (04/23/19 1:45 PM) 16 br/min (04/23/19 1:00 PM) 16 br/min (04/23/19 9:01 AM) Temperature [96.8-100.4 DegF] 98.9 DegF (04/23/19 4:15 PM) 97.9 DegF (04/23/19 9:01 AM) 98.1 DegF (04/22/19 8:53 PM) Mode of Delivery (Oxygen) Room air (04/23/19 1:45 PM) Room air (04/23/19 9:01 AM) Room air (04/22/19 8:53 PM) Blood pressure sites Arm, right (04/23/19 9:01 AM) Arm, right (04/22/19 8:53 PM) Arm, left 1 (04/21/19 4:39 PM) Temperature Route Oral (04/23/19 4:15 PM) Oral (04/23/19 9:01 AM) Oral (04/22/19 8:53 PM) Dry Weight 74.8 kg (04/21/19 5:19 PM) 78.2 kg (04/21/19 4:39 PM) Weight Obtained Via Standing scale (04/21/19 5:19 PM) Patient/family stated (04/21/19 4:39 PM) Dry Weight Obtained Via Standing scale (04/21/19 5:19 PM) Patient/family stated (04/21/19 4:39 PM) Sensory deficits None (04/21/19 4:39 PM) Mobility assistance Independent (04/21/19 4:39 PM) 1Result Comment: arm circumference measured at 26.5 cm
--- OUTSIDE RECORDS SUMMARY | 2023-05-17 15:58 | XMS_ITS | Continuity of Care Document ---
Author Name Unknown Organization [facility] ter Address [address] [place] [id number]- Care Team Providers Care Dry Plasterer Helper Name Role Phone Ernestina Santos NP Primary Care Physician Encounter [facility] [place] Date(s): 10/17/21 - 10/18/[address] [address]- Encounter Diagnosis COVID-19(Final) - 10/17/21 Discharge Disposition: A-D/C Home Attending Physician: Maria M Anderson MD Admitting Physician: Maria M Anderson MD Referring Physician: Not on Staff, Referring MD Allergies, Adverse Reactions, Alerts Substance Reaction Severity Status Morphine Sulfate O/E - sweating Palpitations - rapid Active Medications cyclobenzaprine 10 mg oral tablet 10 mg, 1, tablet, By Mouth, 3 times a day, PRN, # 20 tablet, Refills 0, Tot. Refills 0, Maintenance, for spasm, 04/23/19 16:52:00 EST, Route to Pharmacy Electronically, [facility]/pharmacy #[id number], 160, cm, 04/21/19 17:19:00 EST, Height, 74.8, kg, 04/21/19 17:... Start Date: 04/23/19 Status: Ordered docusate-senna 50 mg-187 mg oral tablet 2 tablet, By Mouth, Daily at bedtime, # 30 tablet, 0 Refills, Maintenance, 01/26/19 14:19:45 EDT, Tablet, 2 tablet By Mouth Daily at bedtime Start Date: 01/26/19 Status: Ordered NIFEdipine 30 mg oral tablet, extended release 30 mg, 1, tablet, By Mouth, 2 times a day, # 90 tablet, Refills 0, Tot. Refills 0, Maintenance, 04/23/19 16:49:00 EST, Route to Pharmacy Electronically, [facility]/pharmacy #[id number], 160, cm, 04/21/19 17:19:00EST, [...] Inform ant Abdominal pain - (Confirmed) Active COVID-19(Confirmed) 1 10/18/21 Active Chronic GERD(Confirmed) Active Migraine(Confirmed) Active (Confirmed) Active Preeclampsia, severe(Confirmed) Active 1Problem added by Discern Expert Vital Signs Most recent to oldest [Reference Range]: 1 2 3 Oxygen Saturation [94-100 %] 99 % (10/17/21 11:46 PM) 98 % (10/17/21 9:33 PM) 96 % (10/17/21 6:02 PM) Pulse Rate [55-90 bpm] 95 bpm *H* (10/17/21 11:46 PM) 95 bpm *H* (10/17/21 9:33 PM) 100 bpm *H* (10/17/21 6:02 PM) Blood Pressure [90-138/55-84 mm Hg] 120/72mm Hg (10/17/21 11:46 PM) 116/66mm Hg (10/17/21 9:33 PM) 113/65mm Hg (10/17/21 6:02 PM) Respiratory Rate [16-30 br/min] 18 br/min (10/17/21 11:46 PM) 16 br/min (10/17/21 9:33 PM) 16 br/min (10/17/21 6:02 PM) Temperature [96.8-100.4 DegF] 98.5 DegF (10/17/21 11:46 PM) 98.3 DegF (10/17/21 9:33 PM) 98.9 DegF (10/17/21 6:02 PM) Mode of Delivery (Oxygen) Room air (10/17/21 11:46 PM) Room air (10/17/21 9:33 PM) Room air (10/17/21 6:02 PM) Blood pressure sites Arm, left (10/17/21 11:46 PM) Arm, left (10/17/21 9:33 PM) Arm, right (10/17/21 6:02 PM) Temperature Route Oral (10/17/21 11:46 PM) Oral (10/17/21 9:33 PM) Oral (10/17/21 6:02 PM)
== END 2023-05-17 16:07 | disposition home or self-care (01) ==
PROVIDERS: Registered Nurse Emergency; Emergency Provider Student in an Organized Health Care Education/Training Program
DX: J10.1 Influenza due to other identified influenza virus with other respiratory manifestations (principal); R50.9 Fever, unspecified; Z11.52 Encounter for screening for COVID-19
CPT/HCPCS: 87502; 87635; 93005; 99283; 99284

== ENCOUNTER → 2023-05-17 14:57 | Outpatient (BNV) | payer MEDICAID, SELFPAY | PROVIDERS: Emergency Provider Student in an Organized Health Care Education/Training Program; Visit Provider Internal Medicine | DX: R07.9 Chest pain, unspecified (principal) | CPT/HCPCS: 93010 ==

== ENCOUNTER 2023-08-01 17:29 | Outpatient (REF) | payer MEDICAID, SELFPAY ==
[2023-08-02 17:13] LABS: C. trachomatis RNA TMA NOT DETECTED (NOT DETECTED); Candida glabrata RNA NOT DETECTED (NOT DETECTED); Candida species RNA DETECTED (NOT DETECTED); N. gonorrhoeae RNA TMA NOT DETECTED (NOT DETECTED); Trichomonas vaginalis RNA NOT DETECTED (NOT DETECTED)
[2023-08-07 04:34] LABS: HPV mRNA E6/E7 rflx Not Detected (Not Detected)
== END 2023-08-01 17:30 | disposition home or self-care (01) ==
LOC: HO.HHCLNP 17:29
PROVIDERS: Visit Provider Nurse Practitioner Family
DX: Z12.4 Encounter for screening for malignant neoplasm of cervix (principal)
CPT/HCPCS: 36415; 81513; 87481; 87491; 87591; 87624; 87661; 88142

== ENCOUNTER 2023-09-14 22:07 | Emergency (ER) | payer MEDICAID, SELFPAY ==
--- NOTE | ~2023-09-14 | US_ITS ---
EXAMINATION: US VENOUS ULTRASOUND WITH DOPPLER LOWER EXTREMITY, RIGHT CLINICAL INFORMATION: Left leg pain. COMPARISON: None available. TECHNIQUE: Ultrasound of the deep veins is performed from the hip to the calf with compression sonography and color and pulse Doppler assessment. Spectral analysis with color-flow imaging is performed. FINDINGS: There is normal venous compression and respiratory variation and augmented flow. The visualized common femoral vein, superficial femoral vein, profunda femoral vein, popliteal vein, and the trifurcation region shows no evidence of deep venous thrombosis. There is no significant popliteal fossa cyst. There are enlarged inguinal lymph nodes measuring up to 2.1 cm. If the patient's symptoms persist, followup ultrasound in 5 days 7 days might be of value to exclude proximal propagation from a non-visualized calf vein. US/US venous duplex LE RT IMPRESSION: No DVT demonstrated in the right lower extremity.
[2023-09-14 22:37] VITALS: BP 121/73; PULSE 76; RESP 20; TEMP 37; O2SAT 99; BMI 26.9
[2023-09-14 22:56] LABS: MANUAL DIFF FLAG NO
[2023-09-14 22:57] LABS: Basophils Absolute Auto 0.1 X10*3/uL (0.0-0.2); Basophils Percent Auto 0.6 % (0-2); Eosinophils Absolute Auto 0.2 X10*3/uL (0.0-0.4); Eosinophils Percent Auto 2.1 % (0-4); Hematocrit 31.6 % (37.0-47.0); Hemoglobin 9.8 g/dl (12.0-16.0); Imm Gran Abs Auto 0.03 X10*3/uL (0.00-0.03); Imm Gran Pct Auto 0.3 % (0.0-0.4); Lymphocytes Absolute Auto 1.8 X10*3/uL (1.2-4.9); Lymphocytes Percent Auto 19.8 % (20-40); Mean Corpuscular Hemoglobin 24.7 pg (27.0-33.0); Mean Corpuscular Volume 79.8 fL (80.0-98.0); Monocytes Absolute Auto 0.9 X10*3/uL (0.1-1.2); Monocytes Percent Auto 9.5 % (2-11); Neutrophils Absolute Auto 6.1 x10*3/uL (2.0-8.3); Neutrophils Percent Auto 67.7 % (45-73); Platelet Count 392 X10*3/uL (160-400); Red Blood Count 3.96 X10*6/uL (4.20-5.50); Red Cell Distribution Width 15.1 % (11.0-16.0); White Blood Count 9.1 X10*3/uL (4.8-10.8)
[2023-09-14 23:16] LABS: Alanine Aminotransferase 21 U/L (0-31); Albumin Level 4.5 g/dL (3.5-5.0); Alkaline Phosphatase 69 U/L (39-117); Anion Gap 13 (12-20); Aspartate Amino Transferase 21 U/L (5-31); Bilirubin Total 0.1 mg/dL (0.0-1.0); Blood Urea Nitrogen 19 mg/dL (9-16); Calcium 9.6 mg/dL (8.4-10.2); Carbon Dioxide 25 mmol/L (22-29); Chloride 105 mmol/L (96-108); Creatinine Clr Calc Pharmacy 101.6; Estimated Glomerular Filt Rate > 60; Glucose Random 95 mg/dL (60-115); Potassium 3.6 mmol/L (3.3-5.1); Sodium 139 mmol/L (135-145); Total Protein 7.6 g/dL (6.5-8.0)
[2023-09-15 02:47] VITALS: BP 118/81; PULSE 75; RESP 18; TEMP 36.6; O2SAT 98
--- NOTE | 2023-09-15 04:46 | ED.LOWEXIN ---
HPI - Extremity Injury (Lower) General Chief Complaint: Extremity Injury, Lower Stated Complaint: rt leg pain/blot clot hx Time Seen by Provider: 09/15/23 04:17 History of Present Illness HPI Narrative: Patient is a 33-year-old female presents today with having right leg pain. History of DVTs in the past. Denies any trauma no falls. Ambulated without any difficulty. There has no chest pain no shortness of breath there is no diaphoresis. Patient is currently not on blood thinners. No fever no chills. No travel history. Not on control pills. No history of bowel urinary incontinence. No focal weakness. Related Data Home Medications ?Medication ?Instructions ?Recorded ?Confirmed acetaminophen 500 mg tablet 500 mg PO Q6H PRN 08/31/21 cetirizine 10 mg tablet 10 mg PO DAILY 08/31/21 02/25/23 escitalopram oxalate 10 mg tablet 20 mg PO DAILY 08/31/21 02/25/23 (Lexapro) fluticasone propionate 50 1 - 2 spray intranasal DAILY PRN 08/31/21 02/25/23 mcg/actuation nasal Nasal Congestion spray,suspension Previous Rx's ?Medication ?Instructions ?Recorded famotidine 20 mg tablet 20 mg PO DAILY #30 tabs 12/10/22 ferrous sulfate 325 mg (65 mg 325 mg PO BID #60 tabs 12/10/22 iron) tablet (Samantha-Time) bisacodyl 5 mg tablet,delayed 10 mg (2 x 5 mg) PO BEDTIME 2 days 05/14/23 release (Dulcolax (bisacodyl)) #4 tabs peg 3350-electrolytes 236 240 ml PO Q10M 1 day #4,000 mL 05/14/23 gram-22.74 gram-6.74 gram-5.86 gram solution (Golytely) omeprazole 40 mg capsule,delayed 40 mg PO DAILY #30 caps 07/29/23 release Allergies Allergy/AdvReac Type Severity Reaction Status Date / Time morphine [MORPHINE] Allergy Unknown hives, hot Verified 09/14/23 22:39 flash Review of Systems Review of Systems: Positive right leg pain PMFSH Past Medical History Attestation statement: The following information was validated with the patient. Medical History GERD (gastroesophageal reflux disease) Hx of anxiety disorder Pre-eclampsia, Hx pulmonary embolism Hx of chronic sinusitis Surgical History Hx of appendectomy Hx of cholecystectomy Family History Family History Mother Family hx of hypertension Emphysema of lung Son Family history of microcephaly Maternal Grandmother Family history of breast cancer Stroke Father History of stomach cancer Social History Social History Alcohol intake: former Patient Tobacco Use Status: Never used Tobacco Advance Directives: No Advance Directives Information Provided: No Do you have a plan to hurt others: No Plan Physical Exam Vital Signs: Vital Signs: Last Vital Signs Temp 97.9 F 09/15/23 02:47 Pulse 75 09/15/23 02:47 Resp 18 09/15/23 02:47 BP 118/81 09/15/23 02:47 Pulse Ox 98 09/15/23 02:47 O2 Del Method Room Air 09/15/23 02:47 BMI result Body Mass Index 26.9 Appearance: Alert. Oriented X3. No acute distress. Eyes: Pupils equal, round and reactive to light. ENT: Pharynx normal. Neck: Normal inspection. Neck supple. No lymph nodes noted. No crepitus CVS: Normal heart rate and rhythm. Pulses normal. Normal S1 and S2 Respiratory: No respiratory distress. Breath sounds normal. No Wheezing. No rales Abdomen: Soft and nontender. No rigidity. No distention. good BS x4 Skin: Skin warm and dry. Normal skin color. Normal skin turgor. Extremities: No lower extremity edema. Neurovascular intact to all extremities. No Lacerations. No Rash. Calf sizes are equal bilaterally negative Homans sign no calf tenderness elicited on palpation. Neuro: Oriented X 3. No motor deficit. No sensory deficit. Moving all extermities. No slurred speech Medical Decision Making Medical Decision Making MDM Narrative: Patient is 33 years old presents today with having pain to the right leg. Doppler of the lower extremity showed no evidence of DVT. There has no gross trauma to suggest patient has a fracture there is good range of motion. There has no bowel urine and CT incontinence suggest that there is any cauda equina syndrome. Question patient's symptoms secondary to sciatica. Patient able to ambulate without any difficulty. Will ask patient's take some Motrin follow-up closely with her primary physician. Her white count is normal. Hemoglobin is 10. No gross evidence of anemia no significant shift. Patient's electrolytes showed normal LFTs normal electrolytes. Patient is currently in stable condition. Differential Diagnosis Differential Diagnoses: The differential diagnosis associated with the presentation includes Sciatica, DVT, electrolyte disturbance Admission/Observation Consideration of admission/observation: Escalation of care including admission/observation considered Lab Data MDM Lab Attestation statement: I reviewed the patient's lab results. 09/14/23 22:51 09/14/23 22:51 Labs: Lab Results 09/14/23 Range/Units 22:51 WBC 9.1 (4.8-10.8) X10*3/uL RBC 3.96 L (4.20-5.50) X10*6/uL Hgb 9.8 L (12.0-16.0) g/dl Hct 31.6 L (37.0-47.0) % MCV 79.8 L (80.0-98.0) fL MCH 24.7 L (27.0-33.0) pg MCHC 31.0 (31.0-35.0) g/dl RDW 15.1 (11.0-16.0) % Plt Count 392 (160-400) X10*3/uL MPV 9.0 L (9.4-12.3) fL Immature Gran % (Auto) 0.3 (0.0-0.4) % Neut % (Auto) 67.7 (45-73) % Lymph % (Auto) 19.8 L (20-40) % [place] % (Auto) 9.5 (2-11) % Eos % (Auto) 2.1 (0-4) % Baso % (Auto) 0.6 (0-2) % Lymph # (Auto) 1.8 (1.2-4.9) X10*3/uL [place] # (Auto) 0.9 (0.1-1.2) X10*3/uL Eos # (Auto) 0.2 (0.0-0.4) X10*3/uL Baso # (Auto) 0.1 (0.0-0.2) X10*3/uL Abs Immat Gran (auto) 0.03 (0.00-0.03) X10*3/uL Absolute Neuts (auto) 6.1 (2.0-8.3) x10*3/uL Absolute Nucleated RBC 0.000 (0.0-0.012) X10*3/uL Nucleated RBC % (auto) 0.0 (0.0-0.2) /100WBC Sodium 139 (135-145) mmol/L Potassium 3.6 (3.3-5.1) mmol/L Chloride 105 (96-108) mmol/L Carbon Dioxide 25 (22-29) mmol/L Anion Gap 13 (12-20) BUN 19 H (9-16) mg/dL Creatinine 0.72 (0.5-1.4) mg/dL Estim Creat Clear Calc 101.6 Estimated GFR > 60 Random Glucose 95 (60-115) mg/dL Calcium 9.6 (8.4-10.2) mg/dL Total Bilirubin 0.1 (0.0-1.0) mg/dL AST 21 (5-31) U/L ALT 21 (0-31) U/L Alkaline Phosphatase 69 (39-117) U/L Total Protein 7.6 (6.5-8.0) g/dL Albumin 4.5 (3.5-5.0) g/dL Radiology Impression Discussion of test interpretation with radiology: I have reviewed the radiologist's reading. External Record Review External record reviewed: Office record Chronic Conditions Previous history of blood clot Discharge Plan Discharge Clinical Impression: Sciatic leg pain Patient Disposition: Home, Self-Care Instructions: Sciatica (ED) Prescriptions: No Action bisacodyl [Dulcolax (bisacodyl)] 5 mg tablet,delayed release (DR/EC) 10 mg PO BEDTIME 2 Days Qty: 4 0RF peg 3350-electrolytes [Golytely] 236-22.74-6.74 -5.86 gram recon soln 240 ml PO Q10M 1 Days Qty: 4000 0RF Rx Instructions: until fecal effluent is clear; do not exceed a total volume of 2,000 mL omeprazole 40 mg capsule,delayed release(DR/EC) 40 mg PO DAILY Qty: 30 6RF escitalopram oxalate [Lexapro] 10 mg tablet 20 mg PO DAILY cetirizine 10 mg tablet 10 mg PO DAILY acetaminophen 500 mg tablet 500 mg PO Q6H PRN fluticasone propionate 50 mcg/actuation spray,suspension 1 - 2 spray intranasal DAILY PRN (Reason: Nasal Congestion) ferrous sulfate [Samantha-Time] 325 mg (65 mg iron) tablet 325 mg PO BID Qty: 60 4RF famotidine 20 mg tablet 20 mg PO DAILY Qty: 30 6RF Referrals: Physician,Unknown J [Primary Care Provider] - 09/17/23 Print Language: [place]
[2023-09-15 06:46] VITALS: BP 00/00; PULSE 0; RESP 0; TEMP -17.7; TEMP 0; O2SAT 0
== END 2023-09-15 06:48 | disposition home or self-care (01) ==
PROVIDERS: Emergency Provider Emergency Medicine Emergency Medical Services
DX: M54.31 Sciatica, right side (principal); M79.604 Pain in right leg; Z86.718 Personal history of other venous thrombosis and embolism; Z86.711 Personal history of pulmonary embolism; Z79.899 Other long term (current) drug therapy
CPT/HCPCS: 36415; 80053; 85025; 93971; 99283; 99284

== ENCOUNTER 2023-11-11 09:35 | Day surgery (SDC) | payer MEDICAID, SELFPAY ==
--- NOTE | 2023-11-10 12:48 | HO.ANESPROP2 ---
Documented by User: Selina Solorio NP 11/10/23 12:49 HPI - Anesthesia Eval Consult details Narrative: 33yo F for Colonoscopy PMFSH Active Problems Active Problems: All Active Problems Pre-op examination (Acute) Anemia (Acute) IUD check up (Acute) Encounter for IUD insertion (Acute) Pulmonary embolism (Acute) Family planning (Acute) Menorrhagia (Acute) Microscopic hematuria (Acute) Candidal vulvovaginitis (Acute) IUD check up (Acute) Family history of colon cancer (Acute) Hemorrhoids (Acute) GERD (gastroesophageal reflux disease) (Acute) Past Medical History Medical History GERD (gastroesophageal reflux disease) Hx of anxiety disorder Pre-eclampsia, Hx pulmonary embolism Hx of chronic sinusitis Family History Family History Mother Family hx of hypertension Emphysema of lung Son Family history of microcephaly Maternal Grandmother Family history of breast cancer Stroke Father History of stomach cancer Surgical History Surgical History Hx of esophagogastroduodenoscopy Hx of colonoscopy Hx of appendectomy Hx of cholecystectomy Social History Social History Alcohol intake: former Patient Tobacco Use Status: Never used Tobacco Are you DNR?: No Advance Directives: No Advance Directives Information Provided: Yes Nutrition Risks: No Nutritional Risk Meds Allergies Allergy/AdvReac Type Severity Reaction Status Date / Time morphine [MORPHINE] Allergy Unknown hives, hot Verified 09/14/23 22:39 flash Home Medications ?Medication ?Instructions ?Recorded ?Confirmed ?Last Taken ?Type acetaminophen 500 mg tablet 500 mg PO Q6H PRN 08/31/21 Unknown History cetirizine 10 mg tablet 10 mg PO DAILY 08/31/21 02/25/23 Unknown History escitalopram oxalate 10 mg tablet 20 mg PO DAILY 08/31/21 02/25/23 Unknown History (Lexapro) fluticasone propionate 50 1 - 2 spray intranasal DAILY PRN 08/31/21 02/25/23 Unknown History mcg/actuation nasal Nasal Congestion spray,suspension Exam Pertinent Lab Results Pertinent Lab Results: Laboratory Tests 09/14/23 22:51 WBC 9.1 Hgb 9.8 L Hct 31.6 L Plt Count 392 Sodium 139 Potassium 3.6 Chloride 105 Carbon Dioxide 25 BUN 19 H Creatinine 0.72 Documented by User: Selina Ramos MD 11/11/23 10:32 PMFSH Past Medical History Medical History GERD (gastroesophageal reflux disease) Hx of anxiety disorder Pre-eclampsia, Hx pulmonary embolism Hx of chronic sinusitis Family History Family History Mother Family hx of hypertension Emphysema of lung Son Family history of microcephaly Maternal Grandmother Family history of breast cancer Stroke Father History of stomach cancer Family history of problems with anesthesia: No Surgical History Surgical History Hx of esophagogastroduodenoscopy Hx of colonoscopy Hx of appendectomy Hx of cholecystectomy History of Problems with Anesthesia: No Social History Social History Alcohol intake: former Patient Tobacco Use Status: Never used Tobacco Are you DNR?: No Advance Directives: No Advance Directives Information Provided: Yes Nutrition Risks: No Nutritional Risk Meds Allergies Allergy/AdvReac Type Severity Reaction Status Date / Time morphine [MORPHINE] Allergy Unknown hives, hot Verified 09/14/23 22:39 flash Home Medications ?Medication ?Instructions ?Recorded ?Confirmed ?Last Taken ?Type acetaminophen 500 mg tablet 500 mg PO Q6H PRN 08/31/21 Unknown History cetirizine 10 mg tablet 10 mg PO DAILY 08/31/21 02/25/23 Unknown History escitalopram oxalate 10 mg tablet 20 mg PO DAILY 05/06/22 10/31/23 Unknown History (Lexapro) fluticasone propionate 50 1 - 2 spray intranasal DAILY PRN 08/31/21 02/25/23 Unknown History mcg/actuation nasal Nasal Congestion spray,suspension Exam Airway Mallampati Class: II TM Dist: >3cm Neck ROM: Full Heart: rrrr Lungs: cta Assessment and Plan Assessment Anesthesia Assessment: Anesthesia Plan Discussed Final Anesthetic Review Family History of Problems with Anesthesia: No History of Problems with Anesthesia: No NPO: Yes ASA Class: III Final Preanesthetic Review: No Changes in Pt Med Stat, Meds/Allgs Chart Reviewed, Consent Obtained/Reviewed and Anes Risks/Benef Reviewed Patient Risk: Intermediate Procedure Risk: Low Anesthetic Plan Anesthetic Plan: MAC: Disposition: Standard PACU
[2023-11-11 06:18] VITALS: BMI 26.9
[2023-11-11 09:58] VITALS: BP 112/75; PULSE 77; RESP 20; TEMP 36.9; O2SAT 99
[2023-11-11 10:07] LABS: UPreg QC Valid YES; Urine Pregnancy NEGATIVE (NEGATIVE)
[2023-11-11] MEDS: Lactated Ringers 1,000 ML 100 ML IVCONT (10:19)
--- NOTE | 2023-11-11 10:46 | MHC.SHP ---
Pre-Procedural Eval Section A - 24 Hr Update-Section A only Date of Service: 11/11/23 Section B - Complete if H&P > 30 days Chief Complaint: Family history of malignant neoplasm of digestive Relevant Family History (Specify if Yes): Yes Relevant Social History: None Present Medications: see Short Stay Collaborative assessment Medical History: Significant History (GERD (gastroesophageal reflux disease) Hx of anxiety disorder Pre-eclampsia, Hx pulmonary embolism Hx of chronic sinusitis) History of Previous Operations: Relevant previous surgery/procedure and date(s) (Hx of esophagogastroduodenoscopy Hx of colonoscopy Hx of appendectomy Hx of cholecystectomy) Allergies: Allergies Allergy/AdvReac Type Severity Reaction Status Date / Time morphine [MORPHINE] Allergy Unknown hives, hot Verified 09/14/23 22:39 flash Review of Systems Sugical H&P ROS: Negative: Constitution, Cardiovascular, Respiratory, Neurological, Psychiatric, Hem-Onc, Allergic/Immunologic, Gastrointestinal, Genitourinary, Musculoskeletal, Integumentary, Endocrine and Eyes/Ears/Nose/Throat Exam Surgical H&P Exam: Normal: HEENT, Normal: Heart, Normal: Lungs, Normal: Extremities, Normal: Abdomen, Normal: Skin and Normal: Neurological Plan Diagnosis/Plan: Unchanged I have reviewed the history and physical and performed a pertinent physical examination on my patient. No changes have occurred unless specified. Time Spent With Patient Time: Total time managing care of this patient today ____ minutes.
--- NOTE | 2023-11-11 12:16 | P.OPN-COLO_ITS ---
Colonoscopy Operative Note Operative Note Date of Service: 11/11/23 Narrative: Operative Information Procedure Description: Colonoscopy Indication: screening, high risk CRC-pos FH Anesthesia: MAC COLONOSCOPY Instrument: Olympus variable stiffness pediatric scope 190L Colonoscopy Monitoring: Vital signs and clinical assessment, continuous EKG monitoring, Pulse oximetry, Carbon Dioxide monitoring and blood pressure monitoring were done throughout the procedure. Colon withdrawal time was 10 minutes. Procedure: The patient was placed in the left lateral decubitis position and pre-procedure medications were administered. After a digital rectal examination of the ano-rectum, the video colonoscope was inserted into the rectum and advanced through the colon to the cecum/TI. The colonoscope was slowly withdrawn in a retrograde panoramic fashion and the colon mucosa was carefully examined including a retroflexed view of the rectum. Findings and interventions are described below. Procedure Difficulty: moderate Findings: Terminal Ileum-not intubated Cecum:normal Ascending Colon: normal Transverse Colon -normal Descending Colon:normal Sigmoid Colon: normal Rectum: Retroflexion with small internal hemorrhoids seen, grade I Anorectum - normal Intervention: none Colon preparation: [place] Bowel Preparation Scale Right colon; 1 Transverse colon: 1-2 Left colon; 1-2 (0 = Unprepared colon segment with mucosa not seen due to solid stool that cannot be cleared. 1 = Portion of mucosa of the colon segment seen, but other areas of the colon segment not well seen due to staining, residual stool and/or opaque liquid. 2 = Minor amount of residual staining, small fragments of stool and/or opaque liquid, but mucosa of colon segment seen well. 3 = Entire mucosa of colon segment seen well with no residual staining, small fragments of stool or opaque liquid) Impression and Post Procedure Diagnosis: internal hemorrhoids Plan: High fiber diet leaflet Avoid straining at stool, epsom salts and sitz bath, anusol supps or cream Repeat Colonoscopy in 1 year due to areas of fair prep or earlier if clinically indicated, ensure prep compliance Above findings were reviewed with the patient and relevant handouts were provided if indicated.
[2023-11-11 12:21] VITALS: BP 90/40; PULSE 65; RESP 16; TEMP 36.7; O2SAT 97
[2023-11-11 12:36] VITALS: BP 91/46; PULSE 67; RESP 16; O2SAT 97
[2023-11-11 12:51] VITALS: BP 100/55; PULSE 68; RESP 16; TEMP 36.7; O2SAT 100
== END 2023-11-11 13:35 | disposition home or self-care (01) ==
PROVIDERS: Nurse Practitioner; Visit Provider Internal Medicine Gastroenterology
PROC: 0DJD8ZZ Inspection of Lower Intestinal Tract, Via Natural or Artificial Opening Endoscopic (ICD-10-PCS; CPT 45378; principal; 2023-11-11 11:30)
DX: Z12.11 Encounter for screening for malignant neoplasm of colon (principal); K64.0 First degree hemorrhoids; Z80.0 Family history of malignant neoplasm of digestive organs; D64.9 Anemia, unspecified; Z86.711 Personal history of pulmonary embolism
CPT/HCPCS: 45378; 81025; J2704

== ENCOUNTER → 2023-11-11 09:35 | Outpatient (BNV) | payer MEDICAID, SELFPAY | PROVIDERS: Visit Provider Internal Medicine Gastroenterology | DX: Z12.11 Encounter for screening for malignant neoplasm of colon (principal); Z80.0 Family history of malignant neoplasm of digestive organs; K64.0 First degree hemorrhoids | CPT/HCPCS: 45378 ==

== ENCOUNTER → 2024-01-06 10:09 | Outpatient (RCR) | payer MEDICAID, SELFPAY ==
--- NOTE | 2020-04-13 14:39 | MHC.HEMONC ---
Patient called for clarification if she should keep taking the Eliquis 5mg BID. Per Doctor Neptali yes to keep taking it and that she will send a refill for the Eliquis 5mg BID.
--- NOTE | 2020-05-04 16:54 | MHC.HEMONC ---
Patient called and left message in Estonian on triage line regarding feeling warmth/heat to legs bilaterally after stopping Eliquis earlier this week. Dr. Gunderson made aware. No pain or swelling reported. Dr. Gunderson states this is not related to stopping the Eliquis. Leilani from [facility] called patient with this RN present. Patient instructed to call office if swelling, pain, or redness occurs. Patient verbalizes understanding.
--- NOTE | 2020-06-01 13:52 | P.PNHO_ITS ---
Medical Summary - Medical Summary Date of Service: 06/01/20 Chief complaint: Follow-up for: PE 04/21/19. Medical Summary: DIAGNOSIS: PULMONARY EMBOLISM March. CURRENT THERAPY: ELIQUIS 5 MG B.I.D. discontinued a month ago. Interval History Interval history: This is a pleasant 30-year-old lady, here for a follow-up visit. She tells me she has been doing very well. She has noticed some chest discomfort over the right upper chest on occasion. It is not related to breathing, nor exertion. She has not had any recent trouble breathing. No cough no sputum. Denies fever nor chills. Energy level has been good. No abdominal pain nausea vomiting heartburn indigestion. Bowels are working without any gross blood in it. She enjoys a good appetite. She has gained weight. She does get her period, but it is not too heavy. She denies any easy bruising nor systemic bleeding. She is in good spirits. Rest of the review of systems is unremarkable. Review of Systems - Constitutional Reports system reviewed and no additional complaints, except as documented - Eyes Reports system reviewed and no additional complaints, except as documented - ENT Reports system reviewed and no additional complaints, except as documented - Cardiovascular Reports system reviewed and no additional complaints, except as documented - Respiratory Reports no additional respiratory complaints - Gastrointestinal Reports system reviewed and no additional complaints, except as documented - Genitourinary Reports no additional female genitourinary complaints - Musculoskeletal Reports system reviewed and no additional complaints, except as documented - Integumentary/Breasts Skin/Breast: Reports no additional skin complaints - Neurologic Reports system reviewed and no additional complaints, except as documented - Psychiatric Reports system reviewed and no additional complaints, except as documented - Endocrine Reports no additional endocrine complaints - Hematologic/Lymphatic Reports system reviewed and no additional complaints, except as documented - Allergic/Immunologic Reports system reviewed and no additional complaints, except as documented PMFSH Medical History: Medical History (Last Reviewed 05/04/20 @ 15:20 by Theodore Michaud MD) Hx of anxiety disorder Hx of chronic sinusitis Hx pulmonary embolism Pre-eclampsia, Family History: Family History (Last Updated 06/01/20 @ 13:56 by Mandy Catalan) Mother Family hx of hypertension Emphysema of lung Son Family history of microcephaly Maternal Grandmother Family history of breast cancer Stroke Father History of stomach cancer Surgical History: Surgical History (Last Reviewed 05/04/20 @ 15:20 by Theodore Michaud MD) Hx of appendectomy Hx of cholecystectomy Social History: Social History (Last Updated 06/01/20 @ 13:57 by Mandy Catalan) Alcohol History: Alcohol intake: former Alcohol History Details: Alcohol intake frequency: does not drink Tobacco History: Smoking Status: Never smoker Substance Use History: Use of substances other than those prescribed or required for medical reasons : No Home Medications and Allergies Home Medications Medication Instructions Recorded Confirmed Type escitalopram oxalate 10 mg tablet 10 mg PO DAILY 02/14/20 06/01/20 History omeprazole 20 mg capsule,delayed 20 mg PO DAILY 02/14/20 06/01/20 History release hydrocortisone 2.5 % topical cream 1 appl [place] BID-QID PRN 04/03/20 06/01/20 History with perineal applicator Allergies Allergy/AdvReac Type Severity Reaction Status Date / Time morphine [MORPHINE] Allergy Unknown hives, hot Verified 05/04/20 14:55 flash Exam - Constitutional Present: no acute distress - Routine HEENT Exam Head: Present: normal inspection Eye: Present: normal appearance ENT: Present: mucous membranes moist - Routine Neck Exam Present: full ROM - Routine Respiratory Exam Present: CTAB - Routine Cardiovascular Exam Cardiovascular: Present: RRR, S1, S2 - Routine Abdominal Exam Present: soft, nontender - Routine Rectal Exam Patient deferred: digital exam - Routine Extremities Exam Present: nontender - Routine Back/Spine/Pelvis Exam Back/Spine: Present: full ROM - Routine Skin Exam Present: intact - Routine Neurological Exam Present: alert, oriented X3 - Routine Psychiatric Exam Present: normal affect Data - Labs CBC & Chem 7: 06/01/20 13:55 06/01/20 13:55 Progress Note: A/P (1) Pulmonary embolism Status: Acute Assessment and plan: This is a pleasant 30 year-old lady, who developed a pulmonary embolism , in the setting of preeclampsia. Her PE was most likely provoked by her . She was treated with Lovenox for a couple of months. She was then switched to Eliquis. She tolerated that very well. She has stopped taking it about a month ago. She is clinically doing well. She notices occasional pain in the right upper chest. This is nonpleuritic not related to exertion, likely muscular. She had lower extremity ultrasounds in March and April 2018, which were negative for DVT. Her D-dimer is less than 200 that is reassuring that she does not have an acute clot now. Blood count is normal. All that is reassuring. PLAN: The plan is to continue to follow her along. She will follow-up with her primary regarding her chest discomfort. She will return in 6 months for a follow-up visit. All her questions were answered to her satisfaction. Thank you, CC: Sendy Ambrose. - Time Spent With Patient Total time spent is greater than 50% in coordination of care (as documented) at patient's floor/unit and/or counseling patient: 25 - 35 minutes
[2020-06-01 14:02] LABS: MANUAL DIFF FLAG NO
[2020-06-01 14:13] LABS: Basophils Absolute Auto 0.1 X10*3/uL (0.0-0.2); Basophils Percent Auto 0.8 % (0-2); Eosinophils Absolute Auto 0.2 X10*3/uL (0.0-0.4); Eosinophils Percent Auto 2.4 % (0-4); Hematocrit 37.3 % (37-47); Hemoglobin 11.7 g/dl (12.0-16.0); Imm Gran Abs Auto 0.02 X10*3/uL (0.00-0.03); Imm Gran Pct Auto 0.3 % (0.0-0.4); Lymphocytes Percent Auto 29.6 % (20-40); Mean Corpuscular HGB Conc 31.4 g/dl (31.0-35.0); Mean Corpuscular Hemoglobin 26.9 pg (27.0-33.0); Mean Corpuscular Volume 85.7 fL (80-98); Mean Platelet Volume 9.6 fL (9.4-12.3); Monocytes Absolute Auto 0.5 X10*3/uL (0.1-1.2); Monocytes Percent Auto 7.6 % (2-11); Neutrophils Absolute Auto 3.9 X10*3/uL (2.0-8.3); Neutrophils Percent Auto 59.3 % (45-73); Platelet Count 351 X10*3/uL (160-400); Red Blood Count 4.35 X10*6/uL (4.20-5.50); Red Cell Distribution Width 14.4 % (11.0-16.0); White Blood Count 6.6 X10*3/uL (4.8-10.8)
[2020-06-01 14:22] LABS: D Dimer < 200 NG/ML
[2020-06-01 14:33] LABS: Alanine Aminotransferase 80 U/L (0-31); Albumin Level 4.6 g/dL (3.5-5.0); Alkaline Phosphatase 116 U/L (39-117); Anion Gap 11 (12-20); Aspartate Amino Transferase 51 U/L (5-31); Bilirubin Total 0.4 mg/dL (0.0-1.0); Blood Urea Nitrogen 16 mg/dL (9-16); Calcium 9.3 mg/dL (8.4-10.2); Carbon Dioxide 28 mmol/L (22-29); Chloride 103 mmol/L (96-108); Estimated Glomerular Filt Rate > 60; Glucose Random 136 mg/dL (60-115); Potassium 3.8 mmol/L (3.3-5.1); Sodium 138 mmol/L (135-145); Total Protein 7.4 g/dL (6.5-8.0)
--- NOTE | 2020-12-06 14:55 | P.PNHO_ITS ---
Medical Summary - Medical Summary Date of Service: 12/06/20 Chief complaint: Follow-up for: Pulmonary embolism. Medical Summary: DIAGNOSIS: PULMONARY EMBOLISM March. CURRENT THERAPY: ELIQUIS 5 MG B.I.D. discontinued a few months ago. Interval History Interval history: This is a pleasant 30-year-old lady, here for a follow-up visit. She tells me she has been doing very well. She denies any lower extremity pain or edema. She has noticed some chest discomfort over the right upper chest on occasion. It is not related to breathing, nor exertion. Could be stress related. She has not had any recent trouble breathing. No cough no sputum. Denies fever nor chills. Energy level has been good. No abdominal pain nausea vomiting heartburn indigestion. Bowels are working without any gross blood in it. She enjoys a good appetite. She has gained weight. She does get her period, but it is not too heavy. She denies any easy bruising nor systemic bleeding. She is in good spirits. Rest of the review of systems is unremarkable. Review of Systems - Constitutional Reports system reviewed and no additional complaints, except as documented, Reports weight gain, Denies fatigue, Denies poor appetite - Eyes Reports system reviewed and no additional complaints, except as documented - ENT Reports system reviewed and no additional complaints, except as documented - Cardiovascular Reports system reviewed and no additional complaints, except as documented - Respiratory Reports no additional respiratory complaints - Gastrointestinal Reports system reviewed and no additional complaints, except as documented - Genitourinary Reports no additional female genitourinary complaints - Musculoskeletal Reports system reviewed and no additional complaints, except as documented - Integumentary/Breasts Skin/Breast: Reports no additional skin complaints - Neurologic Reports system reviewed and no additional complaints, except as documented - Psychiatric Reports system reviewed and no additional complaints, except as documented - Endocrine Reports no additional endocrine complaints - Hematologic/Lymphatic Reports system reviewed and no additional complaints, except as documented - Allergic/Immunologic Reports system reviewed and no additional complaints, except as documented PMFSH Medical History: Medical History (Last Reviewed 12/06/20 @ 15:16 by Mandy Catalan) Hx of anxiety disorder Hx of chronic sinusitis Hx pulmonary embolism Pre-eclampsia, Functional capacity: independent ambulation Patient : No Family History: Family History (Last Reviewed 12/06/20 @ 15:16 by Mandy Catalan) Mother Family hx of hypertension Emphysema of lung Son Family history of microcephaly Maternal Grandmother Family history of breast cancer Stroke Father History of stomach cancer Surgical History: Surgical History (Last Reviewed 12/06/20 @ 15:16 by Mandy Catalan) Hx of appendectomy Hx of cholecystectomy Social History: Social History (Last Reviewed 12/06/20 @ 15:16 by Mandy Catalan) Alcohol History: Alcohol intake: former Alcohol History Details: Alcohol intake frequency: does not drink Substance Use History: Use of substances other than those prescribed or required for medical reasons : No Nutrition Assessment: Patient : No Oncology Screenings - ECOG Performance Status ECOG Performance Status: 0 Home Medications and Allergies Home Medications Medication Instructions Recorded Confirmed Type escitalopram oxalate 10 mg tablet 10 mg PO DAILY 02/14/20 12/06/20 History (Lexapro) omeprazole 20 mg capsule,delayed 20 mg PO DAILY 02/14/20 12/06/20 History release hydrocortisone 2.5 % topical cream 1 appl [place] BID-QID PRN 04/03/20 12/06/20 History with perineal applicator (Anusol-HC) Allergies Allergy/AdvReac Type Severity Reaction Status Date / Time morphine [MORPHINE] Allergy Unknown hives, hot Verified 10/19/20 14:25 flash Exam - Constitutional Present: no acute distress - Routine HEENT Exam Head: Present: normal inspection Eye: Present: normal appearance ENT: Present: mucous membranes moist - Routine Neck Exam Present: full ROM - Routine Respiratory Exam Present: CTAB - Routine Cardiovascular Exam Cardiovascular: Present: RRR, S1, S2 - Routine Abdominal Exam Present: soft, nontender - Routine Rectal Exam Patient deferred: digital exam - Routine Extremities Exam Present: nontender - Routine Back/Spine/Pelvis Exam Back/Spine: Present: full ROM - Routine Skin Exam Present: intact - Routine Neurological Exam Present: alert, oriented X3 - Routine Psychiatric Exam Present: normal affect Data - Labs CBC & Chem 7: 12/06/20 14:59 12/06/20 14:59 Labs: 06/01/20 13:55 CMP [Comprehensive Met. Panel] Routine Complete Blood Count Auto Diff Routine D Dimer Routine Laboratory Last Values WBC 6.6 X10*3/uL (4.8-10.8) 06/01/20 13:55 RBC 4.35 X10*6/uL (4.20-5.50) 06/01/20 13:55 Hgb 11.7 g/dl (12.0-16.0) L 06/01/20 13:55 Hct 37.3 % (37-47) 06/01/20 13:55 MCV 85.7 fL (80-98) 06/01/20 13:55 MCH 26.9 pg (27.0-33.0) L 06/01/20 13:55 MCHC 31.4 g/dl (31.0-35.0) 06/01/20 13:55 RDW 14.4 % (11.0-16.0) 06/01/20 13:55 Plt Count 351 X10*3/uL (160-400) 06/01/20 13:55 MPV 9.6 fL (9.4-12.3) 06/01/20 13:55 Immature Gran % (Auto) 0.3 % (0.0-0.4) 06/01/20 13:55 Neut % (Auto) 59.3 % (45-73) 06/01/20 13:55 Lymph % (Auto) 29.6 % (20-40) 06/01/20 13:55 Wright % (Auto) 7.6 % (2-11) 06/01/20 13:55 Eos % (Auto) 2.4 % (0-4) 06/01/20 13:55 Baso % (Auto) 0.8 % (0-2) 06/01/20 13:55 Lymph # (Auto) 2.0 X10*3/uL (1.2-4.9) 06/01/20 13:55 Wright # (Auto) 0.5 X10*3/uL (0.1-1.2) 06/01/20 13:55 Eos # (Auto) 0.2 X10*3/uL (0.0-0.4) 06/01/20 13:55 Baso # (Auto) 0.1 X10*3/uL (0.0-0.2) 06/01/20 13:55 Abs Immat Gran (auto) 0.02 X10*3/uL (0.00-0.03) 06/01/20 13:55 Absolute Neuts (auto) 3.9 X10*3/uL (2.0-8.3) 06/01/20 13:55 Absolute Nucleated RBC 0.000 X10*3/uL (0.0-0.012) 06/01/20 13:55 Nucleated RBC % (auto) 0.0 /100WBC (0.0-0.2) 06/01/20 13:55 D-Dimer < 200 NG/ML 06/01/20 13:55 Sodium 138 mmol/L (135-145) 06/01/20 13:55 Potassium 3.8 mmol/L (3.3-5.1) 06/01/20 13:55 Chloride 103 mmol/L (96-108) 06/01/20 13:55 Carbon Dioxide 28 mmol/L (22-29) 06/01/20 13:55 Anion Gap 11 (12-20) L 06/01/20 13:55 BUN 16 mg/dL (9-16) 06/01/20 13:55 Creatinine 0.68 mg/dL (0.5-1.4) 06/01/20 13:55 Estim Creat Clear Calc TNP 06/01/20 13:55 Estimated GFR > 60 06/01/20 13:55 Random Glucose 136 mg/dL (60-115) H 06/01/20 13:55 Calcium 9.3 mg/dL (8.4-10.2) 06/01/20 13:55 Total Bilirubin 0.4 mg/dL (0.0-1.0) 06/01/20 13:55 AST 51 U/L (5-31) H 06/01/20 13:55 ALT 80 U/L (0-31) H 06/01/20 13:55 Alkaline Phosphatase 116 U/L (39-117) 06/01/20 13:55 Total Protein 7.4 g/dL (6.5-8.0) 06/01/20 13:55 Albumin 4.6 g/dL (3.5-5.0) 06/01/20 13:55 Progress Note: A/P (1) Pulmonary embolism Status: Acute Assessment and plan: This is a pleasant 30 year-old lady, who developed a pulmonary embolism , in the setting of preeclampsia. Her PE was most likely provoked by her . She was treated with Lovenox for a couple of months. She was then switched to Eliquis. She tolerated that very well. She has stopped taking it about 6 months ago. She is clinically doing well. She had lower extremity ultrasounds in March and April 2018, which were negative for DVT. Her D-dimer is less than 200 that is reassuring. She has mild anemia. Rest of the Blood count is normal. Most likely she has iron deficiency. PLAN: I will check iron studies: 106/414/. Will give her a course iron for few months. Other than that she is doing well. She will follow-up with her primary for further care. All her questions were answered to her satisfaction. She has a question if she can have a tubal ligation done. I told her that would be fine. Thank you, CC: Sendy Ambrose. - Time Spent With Patient Time Spent with Patient (in minutes): 30
[2020-12-06 15:02] LABS: MANUAL DIFF FLAG NO
[2020-12-06 15:06] LABS: Basophils Absolute Auto 0.1 X10*3/uL (0.0-0.2); Basophils Percent Auto 0.6 % (0-2); Eosinophils Absolute Auto 0.2 X10*3/uL (0.0-0.4); Eosinophils Percent Auto 2.4 % (0-4); Hematocrit 35.5 % (37-47); Hemoglobin 11.2 g/dl (12.0-16.0); Imm Gran Abs Auto 0.03 X10*3/uL (0.00-0.03); Imm Gran Pct Auto 0.4 % (0.0-0.4); Lymphocytes Absolute Auto 1.9 X10*3/uL (1.2-4.9); Lymphocytes Percent Auto 22.9 % (20-40); Mean Corpuscular HGB Conc 31.5 g/dl (31.0-35.0); Mean Corpuscular Hemoglobin 26.5 pg (27.0-33.0); Mean Corpuscular Volume 83.9 fL (80-98); Mean Platelet Volume 9.5 fL (9.4-12.3); Monocytes Absolute Auto 0.7 X10*3/uL (0.1-1.2); Monocytes Percent Auto 7.8 % (2-11); Neutrophils Absolute Auto 5.6 X10*3/uL (2.0-8.3); Neutrophils Percent Auto 65.9 % (45-73); Platelet Count 326 X10*3/uL (160-400); Red Blood Count 4.23 X10*6/uL (4.20-5.50); Red Cell Distribution Width 16.1 % (11.0-16.0); White Blood Count 8.4 X10*3/uL (4.8-10.8)
[2020-12-06 15:17] LABS: D Dimer < 200 NG/ML
[2020-12-06 15:20] VITALS: BP 106/65; PULSE 77; RESP 14; TEMP 36.4; O2SAT 99; BMI 27.6
[2020-12-06 15:38] LABS: Alanine Aminotransferase 87 U/L (0-31); Albumin Level 4.5 g/dL (3.5-5.0); Alkaline Phosphatase 102 U/L (39-117); Anion Gap 10 (12-20); Aspartate Amino Transferase 57 U/L (5-31); Bilirubin Total 0.5 mg/dL (0.0-1.0); Blood Urea Nitrogen 15 mg/dL (9-16); Calcium 9.7 mg/dL (8.4-10.2); Carbon Dioxide 28 mmol/L (22-29); Chloride 105 mmol/L (96-108); Creatinine Clr Calc Pharmacy 105.8; Estimated Glomerular Filt Rate > 60; Glucose Random 107 mg/dL (60-115); Potassium 4.1 mmol/L (3.3-5.1); Sodium 139 mmol/L (135-145); Total Protein 7.3 g/dL (6.5-8.0)
--- NOTE | 2020-12-06 15:53 | MHC.HEMONCMA ---
Patient came in for a follow up today, states she is doing well. Clinical summary was reviewed and updated. Patient had labs and will return in 6 months for a follow up.
[2020-12-06 16:11] LABS: Iron 106 mcg/dL (30-160); Percent Iron Saturation 26 % (15-50); Total Iron Binding Capacity 414 mcg/dL (228-428); Unsaturated Iron Binding 308 ug/dL
[2020-12-06 16:31] LABS: Ferritin 18 ng/mL (10-122)
--- NOTE | 2023-03-05 08:53 | HE.ONCSEC ---
Mailed no show ltr
== END | disposition home or self-care (01) ==
LOC: HO.ONC 06-01 13:40
PROVIDERS: PCP Emergency Medicine; Visit Provider Internal Medicine Medical Oncology
DX: D64.9 Anemia, unspecified (principal); Z86.711 Personal history of pulmonary embolism
CPT/HCPCS: 36415; 80053; 82728; 83540; 85025; 85379; 99214

== ENCOUNTER 2024-03-03 23:10 | Emergency (ER) | payer OTHER, SELFPAY ==
[2024-03-03 23:18] VITALS: BP 119/72; PULSE 77; RESP 16; TEMP 36.6; O2SAT 100; BMI 25.9
[2024-03-04 03:07] VITALS: BP 105/64; PULSE 73; RESP 16; TEMP 36.4; O2SAT 99
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
[2024-03-04 05:58] VITALS: BP 113/68; PULSE 66; RESP 16; TEMP 36.6; O2SAT 98
== END 2024-03-04 05:58 | disposition home or self-care (01) ==
PROVIDERS: Emergency Provider Emergency Medicine
DX: S39.92XA Unspecified injury of lower back, initial encounter (principal); S06.0X0A Concussion without loss of consciousness, initial encounter; V43.52XA Car driver injured in collision with other type car in traffic accident, initial encounter; Y93.89 Activity, other specified; Y92.488 Other paved roadways as the place of occurrence of the external cause; Y99.8 Other external cause status
CPT/HCPCS: 99284

== ENCOUNTER 2024-03-23 17:56 | Outpatient (REF) | payer OTHER, SELFPAY ==
[2024-03-24 09:01] LABS: Bacterial Vaginosis PCR POSITIVE (Negative); Candida Group PCR DETECTED (Not Detect); Candida glab krusei PCR NOT DETECTED (Not Detect); Trichomonas vaginalis PCR NOT DETECTED (Not Detect)
== END 2024-03-23 17:57 | disposition home or self-care (01) ==
LOC: HO.HHCLNP 17:56
PROVIDERS: Visit Provider Nurse Practitioner
DX: N89.8 Other specified noninflammatory disorders of vagina (principal)
CPT/HCPCS: 0352U

== ENCOUNTER 2024-09-14 11:39 | Outpatient (AMB) | payer MEDICAID, SELFPAY ==
[2024-09-14 11:42] VITALS: BP 105/59; PULSE 79; BMI 24.2
--- NOTE | 2024-09-14 11:42 | MHC.OFFVIS ---
Vital Signs 09/14/24 11:42 Height 5 ft 3 in Weight 136 lb 10.986 oz BMI 24.2 BP 105/59 L Blood Pressure Location Lt brachial Position Sitting Pulse 79 Intake Visit Reasons: GERD s/p almaraz Intake Note: Kaylee presents in the office as a follow up for GERD. CC: She states that she is not having any concerns at this time. Rubber Cutter Required: No Allergies morphine [MORPHINE] Allergy (Unknown, Verified 09/14/24 11:42) hives, hot flash HPI HPI GERD s/p almaraz: Details: Assessment & Plan (1) GERD (gastroesophageal reflux disease): Comment: 2017 scope focal esophagitis Code(s): K21.9 - Gastro-esophageal reflux disease without esophagitis Plan: She is due for a colonoscopy r/t TA. She is agreeable to having this scheduled. She has not yet performed the FIT test, the last time it was not done properly. She has the cards, but has not yet performed it. I encourage her to do so. She has not been taking oral iron, I will order this for her. She continues on her omeprazole and famotidine with good control of her GERD. There are no prior problems with anesthesia or sedation. There are no current cardiac or respiratory problems. She has a history of pulmonary embolism after giving related to pre eclampsia.. NO ID problems She has a hx of TA and FHX of crc. Return office visit in 3 months. (2) Hemorrhoids: Comment: With history of bleeding Code(s): K64.9 - Unspecified hemorrhoids (3) Anemia: Code(s): D64.9 - Anemia, unspecified (4) Family history of colon cancer: Comment: 2017 scope hemorrhoids only repeat 2021 Code(s): Z80.0 - Family history of malignant neoplasm of digestive organs (5) Pre-op examination: Code(s): Z01.818 - Encounter for other preprocedural examination Orders: Orders Colonoscopy - GI Use Only 12/10/22 Z80.0 - Family history of malignant neoplasm of digestive organs Medications: New omeprazole 40 mg PO DAILY 30 caps 6RF Refilled ferrous sulfate (Samantha-Time) 325 mg PO BID 60 tabs 4RF famotidine 20 mg PO DAILY 30 tabs 6RF COLONOSCOPY 11/11/23 Findings: Terminal Ileum-not intubated Cecum:normal Ascending Colon: normal Transverse Colon -normal Descending Colon:normal Sigmoid Colon: normal Rectum: Retroflexion with small internal hemorrhoids seen, grade I Anorectum - normal Intervention: none Impression and Post Procedure Diagnosis: internal hemorrhoids Plan: High fiber diet leaflet Avoid straining at stool, epsom salts and sitz bath, anusol supps or cream Repeat Colonoscopy in 1 year due to areas of fair prep or earlier if clinically indicated, ensure prep compliance TODAY'S VISIT She continues on her omeprazole and famotidine with good control of her GERD. She added in [id number] digestive enzyme because she is having some bloating and this is working well for her. She wants to know if I approve and absolutely I do. She had no trouble with the prep and she said she was passing water but it was light brown in color. She says she did use the PEG and the Dulcolax. For the next time we will have to consider a 2 day prep or something more aggressive. She is agreeable to the 1 year follow-up. The procedure was well tolerated. The results were explained and the patient is agreeable to the follow-up interval as stated. The bowel pattern has returned to normal. Education was provided to tell any 1st degree relatives about their findings to be sure that they are screened by age 45. Educated that they will be put on a recall list when it is time for their repeat scope but should they move out of state or away from the hospital they will need to remember along with their primary to repeat the procedure in a timely fashion to avoid any adverse complications. Return office visit in 6 months and at that time we will consider reordering colonoscopy. [facility] Medical History (Updated 09/14/24 @ 11:50 by GEOFF Salcedo) IUD check up Candidal vulvovaginitis Family planning Encounter for IUD insertion IUD check up Pre-op examination GERD (gastroesophageal reflux disease) Hx of anxiety disorder Pre-eclampsia, Hx pulmonary embolism Hx of chronic sinusitis Surgical History Hx of esophagogastroduodenoscopy Hx of colonoscopy Hx of appendectomy Hx of cholecystectomy Family History Mother Family hx of hypertension Emphysema of lung Son Family history of microcephaly Maternal Grandmother Family history of breast cancer Stroke Father History of stomach cancer Social History Alcohol intake: former Patient Tobacco Use Status: Never used Tobacco Female Reproductive History Menstrual Age of Menarche: 11 Review of Systems Const Denies fatigue, Denies fever(s), Denies night sweats, Denies poor appetite and Denies weight loss ENT Reports Normal hearing present, Denies dental pain, Denies dysphagia, Denies hearing loss, Denies mouth pain, Denies odynophagia, Denies throat swelling, Denies tongue swelling and Reports other (Dentition adequate) Card Reports no additional complaints Resp Reports no additional complaints GI Details: Denies abdominal pain, Denies melena, Reports bloating, Denies hematochezia, Denies constipation, Denies GI cramping, Denies dysphagia, Denies excessive flatus, Denies early satiety, Reports heartburn, Denies diarrhea, Denies nausea, Denies odynophagia, Denies vomiting and Denies hematemesis Skin/Breast Denies pruritus, Denies lesions, Denies rash and Denies jaundice Neuro Reports Normal hearing present and Denies Abnormal speech present Endo Denies fatigue Aller/Immun Denies throat swelling and Denies tongue swelling Physical Exam Vital Signs: Last Vital Signs Pulse 79 09/14/24 11:42 BP 105/59 L 09/14/24 11:42 BMI result Body Mass Index 24.2 Const General: cooperative, no acute distress, well developed and well groomed Nutritional Appearance: average body habitus and well nourished Orientation/consciousness: oriented to person, oriented to place and oriented to time Limitations: No language barrier HEENT Head: Yes normocephalic and Yes atraumatic Eyes General: appearance normal, both eyes and all related structures Pupils: Equal, round and reactive pupils present Neck Neck: Yes normal visual inspection and Yes no lymphadenopathy Thyroid: Thyroid normal Resp Effort & Inspection: normal respiratory effort and able to speak in complete sentences Auscultation: clear to auscultation bilaterally Cardio Rate: regular rate Rhythm: regular rhythm Heart sounds: Normal, physiologic split S2 sound present Peripheral pulses: radial pulses present and posterior tibial pulses present GI Inspection: No distended and No Abdominal panniculus present Palpation (GI): Soft to palpation, nontender, no guarding, not rigid and No hepatosplenomegaly present Percussion: Yes normal to percussion Auscultation: normal bowel sounds Rectal Exam - Female: deferred Skin Other: Chaves shaded tattoos on forearms and upper arms General skin exam: no rashes or lesions noted, turgor normal, skin not dry, no jaundice, No spider nevi and no striae Rashes: no rashes Nails: normal Neuro General: oriented to person, oriented to place and oriented to time Cranial nerves: Yes Equal, round and reactive pupils present and Yes Normal hearing present Speech: No Abnormal speech present Extrem General: Yes normal to inspection, No clubbing, No cyanosis and No edema Psych Appearance: grossly normal and well kempt Mental Status: mental status grossly normal Speech and movement: Normal speech and movement present Affect: normal affect Attitude: cooperative Thought process: Normal thought process present and not confabulating Thought content: Normal thought content present Insight: Fair insight present (Psych) Judgement: Fair judgement present (Psych) Assessment & Plan Assessment & Plan (1) Family history of colon cancer: Comment: 2017 scope hemorrhoids only repeat 2021 Code(s): Z80.0 - Family history of malignant neoplasm of digestive organs Category: Medical (2) GERD (gastroesophageal reflux disease): Comment: 2017 scope focal esophagitis Code(s): K21.9 - Gastro-esophageal reflux disease without esophagitis Category: Medical (3) Hemorrhoids: Comment: With history of bleeding Code(s): K64.9 - Unspecified hemorrhoids Category: Medical Plan She continues on her omeprazole and famotidine with good control of her GERD. She added in [id number] digestive enzyme because she is having some bloating and this is working well for her. She wants to know if I approve and absolutely I do. She had no trouble with the prep and she said she was passing water but it was light brown in color. She says she did use the PEG and the Dulcolax. For the next time we will have to consider a 2 day prep or something more aggressive. She is agreeable to the 1 year follow-up. The procedure was well tolerated. The results were explained and the patient is agreeable to the follow-up interval as stated. The bowel pattern has returned to normal. Education was provided to tell any 1st degree relatives about their findings to be sure that they are screened by age 45. Educated that they will be put on a recall list when it is time for their repeat scope but should they move out of state or away from the hospital they will need to remember along with their primary to repeat the procedure in a timely fashion to avoid any adverse complications. Return office visit in 6 months and at that time we will consider reordering colonoscopy. Medications: Refilled omeprazole 40 mg PO DAILY 30 caps 6RF famotidine 20 mg PO DAILY 30 tabs 6RF Discontinued bisacodyl (Dulcolax (bisacodyl)) Discontinued Reason: Doctor's Order 10 mg (2 x 5 mg) PO BEDTIME 2 days 4 tabs 0RF Coding Level of Care Code Est Pt Level 3 (31121) Diagnoses Family history of colon cancer Z80.0 GERD (gastroesophageal reflux disease) K21.9 Hemorrhoids K64.9
--- OUTSIDE RECORDS SUMMARY | 2024-09-14 12:54 | XMS_ITS | Clinical Summary ---
Author Organization [facility] [place] [address] Phone Care Team Providers Care Carpenter Name Role Phone Physician, No Pcp Primary Care Provider Unavaila ble Allergies Active Allergy Reactions Criticality Noted Date Comments Morphine Rash 03/24/2024 Medications escitalopram (LEXAPRO) 20 mg tablet Take 1 tablet (20 mg total) by mouth 1 (one) time each day in the morning. Active Social History Tobacco Use Types Packs/Day Years Used Date Smoking Tobacco: Never Assessed Comments Unknown Sex and Gender Information Value Date Recorded Sex Assigned at Female 03/24/2024 2:40 PM EST Legal Sex Female 8:58 PM EST Gender Identity Female 03/24/2024 2:40 PM EST Sexual Orientation Straight 03/24/2024 2: 40 PM EST Last Filed Vital Signs Vital Sign Reading Time Taken Comments Blood Pressure 112/79 03/24/2024 2:09 PM EST Pulse 88 03/24/2024 2:09 PM EST Temperature 36.6 ??C (97.9 ??F) 03/24/2024 2:09 PM ES T Respiratory Rate 16 03/24/2024 2:09 PM EST Oxygen Saturation 98% 03/24/2024 2:09 PM EST Inhaled Oxygen Concentration - - Weight 67.1 kg (148 lb) 03/24/2024 2:09 PM EST Height 160 cm (5' 3 ) 03/24/2024 2:09 PM EST Body Mass Index 26.22 03/24/2024 2:09 PM EST Plan of Treatment Health Maintenance Due Date Last Done Comments Cholesterol Screening (Lipid Panel) 05/23/2023 Depression Screening 05/23/2023 Hepatitis C Screening 05/23/2023 Social Influencers of Health Screening 05/23/2023 COVID-19 Vaccine ( season) 2023 05/02/2021, 07/12/2020 Hypertension/CHF/CAD Annual BMP Blood Test 03/24/2024 Influenza Vaccine (Season Ended) 2024 05/05/2023, 02/23/2021, 02/12/2019, Additional history exists Cervical Cancer Screening: Pap Smear 07/31/2026 08/01/2023 DTaP,Tdap,and Td Vaccines (4 - Td or Tdap) 02/12/2029 02/12/2019, 09/15/2013, 07/04/2012 HPV Vaccines Completed 02/01/2015, 09/2013, 09/15/2013 MMR Vaccines Aged Out 12/05/2015 No longer eligi ble based on patient's age to complete this topic Varicella Vaccines Aged Out 12/05/2015 No longer eligible based on patient's age to complete this topic HIV Screening Completed 11/12/2021 Hepatitis B Vaccines Completed 07/04/2022, 12/28/2021, 12/05/2015 Hepatitis A Vaccines Aged Out 08/01/2023 No long er eligible based on patient's age to complete this topic HIB Vaccines Aged Out No longer eligi ble based on patient's age to complete this topic IPV Vaccines Aged Out No longer eligi ble based on patient's age to complete this topic Meningococcal ACWY Vaccine Aged Out N o longer eligible based on patient's age to complete this topic Meningococcal B Vaccine Aged Out No l onger eligible based on patient's age to complete this topic Pneumococcal Vaccine: Pediatrics (0 to 5 Years) and At-Risk Patients (6 to 64 Years) Aged Out No longer eligible based on patient's age to complete this topic RSV Immunization Patients Under 20 months Aged Out No longer eligible based on patient's age to complete this topic Insurance [employer] II [employer] [id number] Care Teams Carpenter Relationship Specialty Start Date End Date Physician, No Pcp PCP - General 03/24/24
--- OUTSIDE RECORDS SUMMARY | 2024-09-14 12:54 | XMS_ITS | Encounter Summary ---
Author Organization [employer] Address [address] [facility] [address] [place] [address] Care Team Providers Care Residential Worker Name Role Phone Cyndie Viveros Primary Care Provider [phone] Afia Veliz Primary Care Provider [phone] Mariposa Farias NP Primary Care Provider [phone] Encounter Details Date Type Department Care Team (Late st Contact Info) Description 01/22/2023 Orders Only [facility] [address] [place] [address] Stephanie Cedeño LPN Social History Tobacco Use Types Packs/Day Years Used Date Smoking Tobacco: Never Smokeless Tobacco: Never Alcohol Use Standard Drinks/Week Comments Never 0 (1 standard drink = 0.6 oz pur e alcohol) Comments Unknown Sex and Gender Information Value Date Recorded Sex Assigned at Female 02/25/2022 10:22 AM EDT Legal Sex Female 10:22 AM EDT Gender Identity Female 02/25/2022 10:22 AM EDT Sexual Orientation Straight 02/25/2022 10 :22 AM EDT documented as of this encounter Plan of Treatment Not on file documented as of this encounter Visit Diagnoses Not on filedocumented in this encounter Care Teams Residential Worker Relationship Specialty Start Date End Date Cyndie Viveros FNP PCP - General Family Medicine 12/23/21 02/03/23 Afia Veliz ANP [address] [place] [id number] PCP - General Family Medicine 02/04/23 07/17/23 Mariposa Farias NP [address] [place] [id number] PCP - General Family Medicine 07/18/23 documented as of this encounter
--- OUTSIDE RECORDS SUMMARY | 2024-09-14 12:54 | XMS_ITS | Encounter Summary ---
Author Organization [employer] Address [address] [facility] [address] [place] [address] Care Team Providers Care Bank Secrecy Act Officer Name Role Phone Cyndie Viveros FLUTE TEACHER Primary Care Provider [phone] Afia Veliz Primary Care Provider [phone] Mariposa Farias BIOINFORMATICS COMPUTER SCIENTIST Primary Care Provider [phone] Encounter Details Date Type Department Care Team (Late st Contact Info) Description 12/18/2022 Telephone [facility] [address] [place], [place] [id number] Rick, Dodie [address] [place] [address] Social History Tobacco Use Types Packs/Day Years [...] AM EDT documented as of this encounter Miscellaneous Notes * Telephone Encounter - Barbara Navarro - 12/23/2022 2:52 PM EDT Patient waiting for status of her appt for prophy exam xrays DR * Telephone Encounter - Barbara Navarro - 12/18/2022 1:06 PM EDT Patient called in stating that she received a call to schedule an appt but I don't see a note and don't know who called. I called upstairs but believe front end manager is with patients no answer. Pls return call to patient for scheduling DR documented in this encounter Plan of Treatment Not on file documented as of this encounter Visit Diagnoses Not on filedocumented in this encounter Care Teams Bank Secrecy Act Officer Relationship Specialty Start Date End Date Cyndie Viveros FNP PCP - General Family Medicine 12/23/21 02/03/23 Afia Veliz ANP [address] [place] [address] PCP - General Family Medicine 02/04/23 07/17/23 Mariposa Farias NP [address] [place] [address] PCP - General Family Medicine 07/18/23 documented as of this encounter
--- OUTSIDE RECORDS SUMMARY | 2024-09-14 12:54 | XMS_ITS | Clinical Summary ---
Author Organization [employer] Address [address] [facility] 7t [place] [address] Care Team Providers Care Thermo Cementing Folder Operator Name Role Phone Mariposa Farias NP Primary Care Provider [phone] Allergies Active Allergy Reactions Criticality Noted Date Comments Morphine Itching,Rash,Palpitations,Swelling Low 0 08/06/2017 Medications omeprazole (PriLOSEC) [address] capsuleIndicatio ns:Gastroesophag eal reflux disease without esophagitis take 1 capsule by oral route every day before a meal 90 capsule 1 3 Active docusate sodium (Colace) 100 MG capsuleIndicatio ns:Constipation, unspecified constipation type take 1 capsule by oral route every day at bedtime as needed 90 capsule 1 3 Active Additional Information Patient not taking.Reported on 08/02/2024 cyclobenzaprine (Flexeril) 5 MG tabletIndication s:Acute bilateral low back pain without sciatica TAKE 1 TABLET BY MOUTH THREE TIMES DAILY FOR 10 DAYS 30 tablet 3 Active ketotifen (Zaditor) 0.025 % ophthalmic solution Administer 1 drop into both eyes 2 times daily. 10 mL 3 Active Additional Information Patient not taking.Reported on 08/02/2024 azelastine (Astelin) 0.1 % nasal spray Administer 2 sprays into each nostril 2 times daily. Use in each nostril as directed 30 mL 3 Active fluticasone (Flonase) 50 MCG/ACT nasal spray INSTILL 1-2 SPRAYS IN EACH NOSTRIL ONCE DAILY NEEDED 48 g 2 3 Active pseudoephedrine ER (Sudafed 12 Hour) 120 MG 12 hr tablet Take 1 tablet (120 mg) by mouth every 12 (twelve) hours for 14 days. Do not crush, chew, or split. 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 Non-restorable tooth 12/30/2023 Vaginal candidiasis 08/12/2023 Cervical cancer screening 08/03/2023 Assessment & Plan (08/03/2023 12:47 PM EDT): Pap completed today, pending confirmation of no hx of abnormal (outside records review) ,if pap and hpv neg, repeat pap and hpv in 5 years Routine screening for STI (sexually transmitted infection) 08/03/2023 Assessment & Plan (08/03/2023 12:47 PM EDT): Asymptomatic screening completed Dental calculus 01/15/2023 Severe dental caries 01/15/2023 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 Closed fracture of coccyx 10/30/2022 Assessment & Plan (10/30/2022 2:57 PM EDT): Patient already ordered donut pillow Pain medications as prescribed Work letter of excuse Acute left ankle pain 10/30/2022 Muscle spasm 10/30/2022 Abdominal pain during 09/30/2022 Fatigue 09/30/2022 Migraine headache 09/30/2022 Severe pre-eclampsia 09/30/2022 Pulmonary embolism 12/28/2021 Disease due to severe acute respiratory syndrome coronavirus 2 (SARS-CoV-2) 10/18/2021 Overview (09/30/2022): Problem added by Discern Expert Gastroesophageal reflux disease 06/08/2015 Generalized anxiety disorder 06/08/2015 Migraine without aura, not refractory 06/08/2015 Encounters Date Type Department Care Team Description 08/02/2024 10:00 AM EDT Office Visit [facility] [address] [place] [address] Vlad Sadler DMD Dental caries (Primary Dx) 07/21/2024 Population Health Risk Score [facility] [address] [phone] Provider, Population Health Generic 06/30/2024 9:00 AM EST Office Visit [facility] ADULT D[facility]AL [address] [place] [address] Vlad Sadler DMD Dental caries (Primary Dx) 06/25/2024 10:00 AM EST Office Visit [facility] ADULT D[facility]AL [address] [place] [address] Leigh Ann Mckeon Periodontal disease (Primary Dx); Dental caries; Secondary dental caries associated with failed or defective dental moravian from Last 3 Months Immunizations Immunization Administration Dates Next Due DTaP 07/04/2012 HPV 9-Valent 02/01/2015 HPV, Quadrivalent 12/01/2013,09/15/2013 Hep A, Adult 08/01/2023 Hep B, adult 07/04/2022,12/28/2021,12/05/2015 Influenza injectable quadriv alent IIV4 with preservative 05/05/2023,01/26/2018 Influenza injectable quadriv alent preservative free 02/23/2021,02/12/2019 Influenza, Split (incl. steve fied surface antigen) 06/30/2013 MMR 12/05/2015 Tdap 02/12/2019,02/12/2019,09/15/2013 Varicella 12/05/2015 Social History Tobacco Use Types Packs/Day Years Used Date Smoking Tobacco: Never Smokeless Tobacco: Never Tobacco Cessation:Counseling Given: Not Answered Alcohol Use Standard Drinks/Week Comments Never 0 (1 standard drink = 0.6 oz pur e alcohol) Housing Stability Answer Date Recorded What is your housing situation today? I have tang arch[place] 12/08/[address] you li ve. Do you have problems with any of the following? None of the above 12/08/2023 Food Insecurity Answer Date Recorded Within the past 12 months, y ou worried that your food would run out before you got money to buy more: Never True 12/08/2023 Within the past 12 months,th e food you bought just didn't last and you didn't have enough money to get more: Never True 03/2024 Transportation Answer Date Recorded In the past 12 months, has l ack of transportation kept you from medical appts, meetings, work or from getting things needed for daily living? No 12/08/2023 Utilities Answer Date Recorded In the past 12 months, has t he electric, gas, oil or water company threatened to shut off services in your home? No 12/08/2023 Internet Access Answer Date Recorded Internet Access Q1 Yes 12/27/2023 Internet Access Q2 Not on file 12/27/2023 Comments Unknown Sex and Gender Information Value Date Recorded Sex Assigned at Female 02/25/2022 10:22 AM EDT Legal Sex Female 10:22 AM EDT Gender Identity Female 02/25/2022 10:22 AM EDT Sexual Orientation Straight 02/25/2022 10 :22 AM EDT Last Filed Vital Signs Vital Sign Reading Time Taken Comments Blood Pressure 110/70 08/02/2024 10:14 AM EDT Pulse 94 03/23/2024 1:16 PM EST Temperature 36.9 ??C (98.4 ??F) 03/23/2024 1:16 PM ES T Respiratory Rate 20 08/01/2023 11:32 AM EDT Oxygen Saturation 98% 08/01/2023 11:32 AM EDT Inhaled Oxygen Concentration - - Weight 66.3 kg (146 lb 3.2 oz) 03/23/2024 1:16 P M EST Height 160 cm (5' 3 ) 03/23/2024 1:16 PM EST Body Mass Index 25.9 03/23/2024 1:16 PM EST Plan of Treatment Health Maintenance Due Date Last Done Comments Depression Screening 1990 Lipid Panel 1990 Disability Screening 1988 Alcohol/Substance Use Screening 2000 Family Planning (PISQ) 2003 COVID-19 Vaccine ( season) 2023 05/02/2021, 07/12/2020 Influenza Vaccine (#1) 2023 , 02/23/2021, 02/12/2019, Additional history exists SDOH Screening 12/07/2024 12/08/2023 Dental Oral Exam 12/24/2024 06/25/2024, , 04/11/2021, Additional history exists Dental Prophylaxis 12/24/2024 06/25/2024, 0 01/15/2023, 04/11/2021, Additional history exists Dental X-Ray: Bitewings 06/26/2025 06/25/19, 01/15/2023, 04/11/2021, Additional history exists Tobacco Screening 06/30/2025 06/30/2024 Dental X-Ray: Full Mouth 11/27/2026 024, 10/12/2020, 11/12/2017 Cervical Cancer Screening 07/31/2028 HPV/Cotest 07/31/2028 08/01/2023 Pap Smear 07/31/2028 08/01/2023 DTaP/Tdap/Td Vaccines (5 - Td or Tdap) 02/12/2029 02/12/2019, 02/12/2019, 09/15/2013, Additional history exists Zoster Vaccines (1 of 2) 2038 RSV Patients and Patients Aged 60 years or older (1 - 1-dose 75+ series) 2063 HPV Vaccines Completed 02/01/2015, 09/2013, 09/15/2013 HIV Screening Completed 11/12/2021 Hepatitis C Screening Completed 11/12/2021 Hepatitis B Vaccines Completed [...] patient's age to complete this topic Meningococcal Vaccine Aged Out No ariella stefan eligible based on patient's age to complete this topic Pneumococcal Vaccine: Pediatrics (0 to 5 Years) and At-Risk Patients (6 to 49) Years) Aged Out No longer eligible based on patient's age to complete this topic RSV under 20 months Aged Out No longe r eligible based on patient's age to complete this topic Rotavirus Vaccines Aged Out No longer eligible based on patient's age to complete this topic Procedures Procedure Name Priority Date/Time Associated Diagnosis Comments CASE PRESENTATION, DETAILED AND EXTENSIVE TREATMENT PLANNING Routine 08/02/2024 10:00 AM EDT Dental caries 2 ALBINO RESIN-BASED COMPOSITE - 2 SURF, POSTERIOR Routine 08/02/2024 10:00 AM EDT Dental caries CASE PRESENTATION, DETAILED AND EXTENSIVE TREATMENT PLANNING Routine 06/30/2024 9:00 AM EST Dental caries 17 EXTRACTION, ERUPTED TOOTH OR EXPOSED ROOT (ELEVATION/FORCEPS REMOVAL) Routine 06/30/2024 9:00 AM EST Dental caries 16 EXTRACTION, ERUPTED TOOTH OR EXPOSED ROOT (ELEVATION/FORCEPS REMOVAL) Routine 06/30/2024 9:00 AM EST Dental caries COMPREHENSIVE PERIODONTAL EVALUATION - NEW OR ESTABLISHED PATIENT Routine 06/25/2024 10:00 AM EST Dental caries Periodontal disease Secondary dental caries associated with failed or defective dental moravian PERIODIC ORAL EVALUATION - ESTABLISHED PATIENT Routine 06/25/2024 10:00 AM EST Dental caries Periodontal disease Secondary dental caries associated with failed or defective dental moravian INTRAORAL - PERIAPICAL EACH ADDITIONAL RADIOGRAPHIC IMAGE Routine 06/25/2024 10:00 AM EST Dental caries Periodontal disease Secondary dental caries associated with failed or defective dental moravian INTRAORAL - PERIAPICAL FIRST RADIOGRAPHIC IMAGE Routine 06/25/2024 10:00 AM EST Dental caries Periodontal disease Secondary dental caries associated with failed or defective dental moravian BITEWINGS - 4 RADIOGRAPHIC IMAGES Routine 06/25/2024 10:00 AM EST Dental caries Periodontal disease Secondary dental caries associated with failed or defective dental moravian ORAL HYGIENE INSTRUCTIONS Routine 06/25/2024 10:00 AM EST Dental caries Periodontal disease Secondary dental caries associated with failed or defective dental moravian CASE PRESENTATION, DETAILED AND EXTENSIVE TREATMENT PLANNING Routine 06/25/2024 10:00 AM EST Dental caries Periodontal disease Secondary dental caries associated with failed or defective dental moravian PROPHYLAXIS - ADULT Routine 06/25/2024 1 0:00 AM EST Dental caries Periodontal disease Secondary dental caries associated with failed or defective dental moravian PANORAMIC RADIOGRAPHIC IMAGE Routine 11/27/2023 1:00 PM EDT HPV MRNA E6/E7 REFLEX TO HPV 16, 18/45 Routine 08/01/2023 12:15 PM EDT Cervical cancer screening PAP SMEAR Routine 08/01/2023 12:15 PM EDT Cervical cancer screening ZZZ HISTORICAL HEPATITIS C AB W/REFL TO HCV RNA, QN, PCR Routine 11/12/2021 2:03 PM EDT HIV 1/2 ANTIGEN/ANTIBODY, FOURTH GENERATION W/RFL Routine 11/12/2021 2:03 PM EDT from Last 3 Months or Most Recently Relevant to Health Maintenance Results * HPV mRNA E6/E7 w/Reflex to HPV Genotypes 16, 18/45 (08/01/2023 12:15 PM EDT) HPV nRNA E6/E7 Not Detected Not Detected [facility] Comment:Methodology: Transcr iption-Mediated AmplificationThis assay detects E6/E7 viral messenger RNA (mRNA) from 14high-risk HPV types (16,18,31,33,35,39,45,51,52,56,58,59,66,68).Cervical sources are required for HPV testing.If a vaginal source from a patient who has had atotal hysterectomy with removal of cervix wassubmitted, please contact the testing laboratoryfor alternative testing options.For additional information, please refer tohttp://education.[employer]/faq/UAU790c3(This link if provided for information/educational purposes only.)THIS TEST WAS PERFORMED AT:[facility] [place] [id number] BETHEA MD HPV mRNA E6/E7 [facility] HPV 16 RNA [facility] HPV 18/45 RNA [facility] 08/01/2023 12:1 5 PM EDT 08/05/2023 8:30 AM EDT us Mariposa Farias NP LAB CYTOLOGY ORDERABLES Final Re sult [facility] [address] [place] [phone] * Pap Smear (08/01/2023 12:15 PM EDT) Swab 08/01/2023 12:1 5 PM EDT 08/04/2023 8:30 AM EDT [facility] - 08/16/2023 4:29 PM EDT ----- ------- Name: Kaylee Pemberton V ?Age/Sex: 33/F ? : 1990 Unit#: [id number] ?? Attend Dr: Mariposa Farias NP ?Re08/01/23 ?Status: DEP REF ? Location: HO.HHCLNP ? Disch: ? ----- ------- SPEC : [id number] ? RECD: 08/04/23-829 ? STATUS: ??SOUT ? REQ NUM: [id number] ? RODNEY: 08/01/23-1214 ? SUBM DR: Mariposa Farias NP ? ENTERED: ??08/04/23-1028 ?SP TYPE: Pap Smr ?OTHR SMITH: ? ORDERED: ??Pap Smear ? Interpretation ?? Satisfactory for evaluation. ?? Negative for intraepithelial lesion or malignancy. ? HPV mRNA E6/E7: ?NOT DETECTED ? This assay detects E6/E7 viral messenger RNA (mRNA) from 14 high-risk HPV types (16, 18, ?? 31, 33, 35, 39, 45, 51, 52, 56, 58, 59, 66, 68) ? HPV testing performed by [employer], [place], [place]. ??See reference laboratory ?? portion of the EMR for entire report. ?Clinical Information LMP: IUD Previous PAP test: Unknown date, WNL ? Material Received ?? ThinPrep-Cervical ----- ------- Signed (signature on file) Maggi Nelson Cici 08/16/23 [id number] ? ----- ------- ? END OF REPORT ? Mariposa Farias ENTRY LEVEL MANAGEMENT LAB CYTOLOGY ORDERABLES Final Re sult Performing Organization Address [facility] Co de Phone Number [facility] [address] [place] [address] [phone] * HEPATITIS C AB W/REFL TO HCV RNA, QN, PCR (11/12/2021 2:03 PM EDT) HEPATITIS C ANTIBODY NON-REACT SHARLA NON-REACT SHARLA [facility] INDEX 0.13 <1.00 [facility] Comment: ?? HCV antibody was non-reactive. There is no laboratory ?? evidence of HCV infection. ?? In most cases, no further action is required. However, if recent HCV exposure is suspected, a test for HCV RNA (test code 21743) is suggested. ?? For additional information please refer to http://education.[employer]/faq/DAE67d2 (This link is being provided for informational/ educational purposes only.) ?? 11/12/2021 2:03 PM EDT Stephanie Brasher MARINE ANIMAL TRAINER HISTORICAL/NON ORDERABLE LABS Final Result Performing Organization Address [facility] Co de Phone Number [facility] [address] * HIV 1/2 ANTIGEN/ANTIBODY,FOURTH GENERATION W/RFL (11/12/2021 2:03 PM EDT) HIV-1/2 ANTIGEN AND ANTIBODIES, 4TH GENERATION W/ REFLEX NON-REACT SHARLA NON-REACT [facility] Comment: HIV-1 antigen and HIV-1/HIV-2 antibodies were not detected. There is no laboratory evidence of HIV infection. ?? PLEASE NOTE: This information has been disclosed to you from records whose confidentiality may be protected by state law. ??If your state requires such protection, then the state law prohibits you from making any further disclosure of the information without the specific written consent of the person to whom it pertains, or as otherwise permitted by law. A general authorization for the release of medical or other information is NOT sufficient for this purpose. ? For additional information please refer to http://[employer]/faq/JQS212 (This link is being provided for informational/ educational purposes only.) ? The performance of this assay has not been clinically validated in patients less than 2 years old. ?? 11/12/2021 2:03 PM EDT us Stephanie Brasher MARINE ANIMAL TRAINER LAB BLOOD ORDERABLES Final Res ult [facility] [address] from Last 3 Months or Most Recently Relevant to Health Maintenance Insurance [facility] ST[facility] ADULT Care Teams Thermo Cementing Folder Operator Relationship Specialty Start Date End Date Maripsoa Farias NP [address] [place] [id number] PCP - General Family Medicine 07/18/23
--- OUTSIDE RECORDS SUMMARY | 2024-09-14 12:54 | XMS_ITS | Encounter Summary ---
Author Organization [employer] Address [address] [facility] 7t [place] [address] Care Team Providers Care Electrical And Instrumentation Manager Name Role Phone Afia Veliz Primary Care Provider [phone] Mariposa Farias NP Primary Care Provider [phone] Reason for Visit * Reason Onset Date Comments Appointment Request 07/04/2023 Encounter Details Date Type Department Care Team ([facility] Contact Info) Description 07/04/2023 Telephone [facility] [address] [place], [place] [phone] Afia Veliz ANP [address] [place], [place] [phone] Appointment Request Social History Tobacco Use Types Packs/Day Years [...] encounter Miscellaneous Notes * Telephone Encounter - STEFANIE Arce - 12/03/2023 11:34 AM EDT Has seen PCP since this msg rec'd. * Telephone Encounter - Osmin García - 07/04/2023 9:01 AM EST Tc from patient calling to request a appt however patient needs a TP appt and would also like to beseen by a PATTERNMAKER SAMPLE patient states there is no concerns at the moment documented in this encounter Plan of Treatment Not on file documented as of this encounter Visit Diagnoses Not on filedocumented in this encounter Care Teams Electrical And Instrumentation Manager Relationship Specialty Start Date End Date Afia Veliz ANP [address] [place] [address] PCP - General Family Medicine 02/04/23 07/17/23 Mariposa Farias NP [address] [place] [address] PCP - General Family Medicine 07/18/23 documented as of this encounter
--- OUTSIDE RECORDS SUMMARY | 2024-09-14 12:54 | XMS_ITS | Encounter Summary ---
Author Organization [employer] Address [address] [facility] [address] [place] [address] Care Team Providers Care Scouring Train Operator Chief Name Role Phone Mariposa Farias NP Primary Care Provider Encounter Details Date Type Department Care Team ([facility] st Contact Info) Description 01/01/2024 Telephone [facility] [address] [place] [address] Aris Putnam DDS [address] [place] [address] Social History Tobacco Use Types Packs/Day Years [...] encounter Miscellaneous Notes * Telephone Encounter - Steph Hodges - 01/01/2024 2:44 PM EDT Patient called she says she's in a lot of pain medication u send her is not helping . documented in this encounter Plan of Treatment Not on file documented as of this encounter Visit Diagnoses Not on filedocumented in this encounter Care Teams Scouring Train Operator Chief Relationship Specialty Start Date End Date Mariposa Farias NP [address] [place] [address] PCP - General Family Medicine 07/18/23 documented as of this encounter
--- OUTSIDE RECORDS SUMMARY | 2024-09-14 12:54 | XMS_ITS | Encounter Summary ---
Author Organization [employer] [facility] Address [address] [facility] [address] [place] [address] Care Team Providers Care Coil Inspector Name Role Phone Cyndie Viveros Primary Care Provider [phone] Afia Veliz Primary Care Provider [phone] Mariposa Farias NP Primary Care Provider [phone] Encounter Details Date Type Department Care Team (Latest Contact Info) Description 04/11/2021 Abstract [facility] Dental, Provider, DDS Social History Tobacco Use Types Packs/Day Years [...] on filedocumented in this encounter Care Teams Coil Inspector Relationship Specialty Start Date End Date Cyndie Viveros FNP PCP - General Family Medicine 12/23/21 02/03/23 Afia Veliz ANP [address] [place], [place] [phone] PCP - General Family Medicine 02/04/23 07/17/23 Mariposa Farias NP [address] [place], [place] [phone] PCP - General Family Medicine 07/18/23 documented as of this encounter
--- OUTSIDE RECORDS SUMMARY | 2024-09-14 12:54 | XMS_ITS | Encounter Summary ---
Author Organization [employer] Address [address] [facility] 7t [place] [address] Care Team Providers Care Wrist Liner Name Role Phone Cyndie Viveros Primary Care Provider [phone] Afia Veliz Primary Care Provider [phone] Mariposa Farias NP Primary Care Provider [phone] Encounter Details Date Type Department Care Team ([facility] st Contact Info) Description 07/01/2022 Orders Only [facility] PEDS [address] [place] [address] Rosa Reno LPN Social History Tobacco Use Types Packs/Day Years Used Date Smoking Tobacco: Never Assessed Comments Unknown Sex and Gender Information Value Date Recorded Sex Assigned at Female 02/25/2022 10:22 AM EDT Legal Sex Female 10:22 AM EDT Gender Identity Female 02/25/2022 10:22 AM EDT Sexual Orientation Straight 02/25/2022 10 :22 AM EDT COVID-19 Exposure Response Date Recorded In the last 10 days, have yo u been in contact with someone who was confirmed or suspected to have Coronavirus/COVID-19? No / Unsure 07/04/2022 11:01 AM EST documented as of this encounter Plan of Treatment Not on file documented as of this encounter Visit Diagnoses Not on filedocumented in this encounter Care Teams Wrist Liner Relationship Specialty Start Date End Date Cyndie Viveros FNP PCP - General Family Medicine 12/23/21 02/03/23 Afia Veliz ANP [address] [place] [address] PCP - General Family Medicine 02/04/23 07/17/23 Mariposa Farias NP [address] [place] [id number] PCP - General Family Medicine 07/18/23 documented as of this encounter
== END 2024-09-14 11:57 | disposition home or self-care (01) ==
LOC: HO.HGI 11:40
PROVIDERS: PCP Nurse Practitioner Family; Visit Provider Nurse Practitioner
DX: Z80.0 Family history of malignant neoplasm of digestive organs (principal); K21.9 Gastro-esophageal reflux disease without esophagitis; K64.9 Unspecified hemorrhoids
CPT/HCPCS: 99213

== ENCOUNTER → 2024-09-14 11:39 | Outpatient (BNVA) | payer OTHER, SELFPAY | PROVIDERS: PCP Nurse Practitioner Family; Visit Provider Nurse Practitioner | DX: Z80.0 Family history of malignant neoplasm of digestive organs (principal); K21.9 Gastro-esophageal reflux disease without esophagitis; K64.9 Unspecified hemorrhoids | CPT/HCPCS: 99212 ==

== ENCOUNTER 2024-10-22 13:25 | Outpatient (REF) | payer OTHER, SELFPAY ==
--- OUTSIDE RECORDS SUMMARY | 2024-10-22 13:56 | XMS_ITS | Encounter Summary ---
Author Organization [employer] Address [address] [facility] 7t [place] [address] Care Team Providers Care System Specialist Name Role Phone Cyndie Viveros Primary Care Provider [phone] Afia Veliz Primary Care Provider [phone] Mariposa Farias NP Primary Care Provider Encounter Details Date Type Department Care Team (Late st Contact Info) Description 01/22/2023 Orders Only [facility] [address] [place] [address] Stephanie Cedeño LPN Social History Tobacco Use [...] on filedocumented in this encounter Care Teams System Specialist Relationship Specialty Start Date End Date Cyndie Viveros FNP PCP - General Family Medicine 12/23/21 02/03/23 Afia Veliz ANP [address] [place] [address] PCP - General Family Medicine 02/04/23 07/17/23 Mariposa Farias NP [address] [place] [address] PCP - General Family Medicine 07/18/23 documented as of this encounter
== END 2024-10-22 13:26 | disposition home or self-care (01) ==
LOC: HO.HHCX 13:25
PROVIDERS: PCP Nurse Practitioner Family; Visit Provider Internal Medicine
DX: Z13.89 Encounter for screening for other disorder (principal)

== ENCOUNTER 2024-10-22 13:55 | Outpatient (REF) | payer OTHER, SELFPAY ==
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
== END 2024-10-22 13:56 | disposition home or self-care (01) ==
LOC: HO.HHCX 13:55
PROVIDERS: PCP Nurse Practitioner Family; Visit Provider Internal Medicine
DX: S23.9XXA Sprain of unspecified parts of thorax, initial encounter (principal); S13.9XXA Sprain of joints and ligaments of unspecified parts of neck, initial encounter
CPT/HCPCS: 72040; 72072

== ENCOUNTER → 2024-10-22 13:56 | Outpatient (BNV) | payer OTHER, SELFPAY | PROVIDERS: PCP Nurse Practitioner Family; Visit Provider Radiology Diagnostic Radiology | DX: M54.2 Cervicalgia (principal); M47.816 Spondylosis without myelopathy or radiculopathy, lumbar region | CPT/HCPCS: 72040; 72072 ==

== ENCOUNTER 2025-03-08 09:40 | Outpatient (REF) | payer SELFPAY ==
[2025-03-08 10:40] LABS: MANUAL DIFF FLAG NO
[2025-03-08 11:31] LABS: Hematocrit 39.0 % (37.0-47.0); Hemoglobin 12.0 g/dl (12.0-16.0); Imm Gran Abs Auto 0.02 X10*3/uL (0.00-0.03); Imm Gran Pct Auto 0.3 % (0.0-0.4); Lymphocytes Absolute Auto 1.8 X10*3/uL (1.2-4.9); Mean Corpuscular HGB Conc 30.8 g/dl (31.0-35.0); Mean Corpuscular Hemoglobin 25.5 pg (27.0-33.0); Mean Corpuscular Volume 82.8 fL (80.0-98.0); NRBC Abs Auto 0.000 X10*3/uL (0.0-0.012); NRBC Pct Auto 0.0 /100WBC (0.0-0.2); Platelet Count 386 X10*3/uL (160-400); Red Blood Count 4.71 X10*6/uL (4.20-5.50); White Blood Count 6.6 X10*3/uL (4.8-10.8)
[2025-03-08 12:09] LABS: Alanine Aminotransferase 25 U/L (0-31); Albumin Level 4.8 g/dL (3.5-5.0); Alkaline Phosphatase 94 U/L (39-117); Anion Gap 11 (12-20); Aspartate Amino Transferase 24 U/L (5-31); Blood Urea Nitrogen 17 mg/dL (9-16); Calcium 9.4 mg/dL (8.4-10.2); Carbon Dioxide 25 mmol/L (22-29); Chloride 106 mmol/L (96-108); Estimated Glomerular Filt Rate > 60; Potassium 3.8 mmol/L (3.3-5.1); Sodium 138 mmol/L (135-145); Total Protein 7.8 g/dL (6.5-8.0)
[2025-03-08 12:34] LABS: Folate 8.1 ng/mL (> or = 4.0); Vitamin B12 501 pg/mL (200-900)
== END 2025-03-08 09:41 | disposition home or self-care (01) ==
LOC: HO.LAB 09:40
PROVIDERS: PCP Nurse Practitioner Family; Visit Provider Nurse Practitioner
DX: K21.9 Gastro-esophageal reflux disease without esophagitis (principal); R53.83 Other fatigue; Z80.0 Family history of malignant neoplasm of digestive organs; Z13.21 Encounter for screening for nutritional disorder
CPT/HCPCS: 36415; 80053; 82306; 82607; 82746; 84443; 85025

== ENCOUNTER 2025-03-08 09:40 | Outpatient (AMB) | payer OTHER, SELFPAY ==
--- NOTE | 2025-03-08 09:48 | A.OFFVIS_ITS ---
Vital Signs 03/08/25 09:49 Height 5 ft 3 in Weight 136 lb BMI 24.1 BP 100/64 Blood Pressure Location Rt brachial Position Sitting Pulse 74 Pulse Source Pulse Oximeter Pulse Oximetry (%) 99 Oxygen Delivery Method Room Air Intake Visit Reasons: gerd Intake Note: Est pt for mgmt of GERD + Anemia. CC: C.O. dizziness and fatigue despite current iron supplement therapy. Pt rigoberto es any new sx presentation or concerns but is concerned that the iron does not seem to be controlling her sx. Has not had labs checked in about 1 year. Peanut Blancher Required: No Accompanied by: Self / Same As Patient Allergies morphine (MORPHINE) Allergy (Unknown, Verified 03/08/25 09:48) hives, hot flash HPI HPI gerd: Details: Assessment & Plan (1) Family history of colon cancer: Comment: 2017 scope hemorrhoids only repeat 2021 Code(s): Z80.0 - Family history of malignant neoplasm of digestive organs Category: Medical (2) GERD (gastroesophageal reflux disease): Comment: 2017 scope focal esophagitis Code(s): K21.9 - Gastro-esophageal reflux disease without esophagitis Category: Medical (3) Hemorrhoids: Comment: With history of bleeding Code(s): K64.9 - Unspecified hemorrhoids Category: Medical Plan She continues on her omeprazole and famotidine with good control of her GERD. She added in fdba-yht-hruysbt digestive enzyme because she is having some bloating and this is working well for her. She wants to know if I approve and absolutely I do. She had no trouble with the prep and she said she was passing water but it was light brown in color. She says she did use the PEG and the Dulcolax. For the next time we will have to consider a 2 day prep or something more aggressive. She is agreeable to the 1 year follow-up. The procedure was well tolerated. The results were explained and the patient is agreeable to the follow-up interval as stated. The bowel pattern has returned to normal. Education was provided to tell any 1st degree relatives about their findings to be sure that they are screened by age 45. Educated that they will be put on a recall list when it is time for their repeat scope but should they move out of state or away from the hospital they will need to remember along with their primary to repeat the procedure in a timely fashion to avoid any adverse complications. Return office visit in 6 months and at that time we will consider reordering colonoscopy. Medications: Refilled omeprazole 40 mg PO DAILY 30 caps 6RF famotidine 20 mg PO DAILY 30 tabs 6RF Discontinued bisacodyl (Dulcolax (bisacodyl)) Discontinued Reason: Doctor's Order 10 mg (2 x 5 mg) PO BEDTIME 2 days 4 tabs 0RF TODAYS VISIT [facility] Medical History IUD check up Candidal vulvovaginitis Family planning Encounter for IUD insertion IUD check up Pre-op examination GERD (gastroesophageal reflux disease) Hx of anxiety disorder Pre-eclampsia, Hx pulmonary embolism Hx of chronic sinusitis Surgical History Hx of esophagogastroduodenoscopy Hx of colonoscopy Hx of appendectomy Hx of cholecystectomy Family History Mother Family hx of hypertension Emphysema of lung Son Family history of microcephaly Maternal Grandmother Family history of breast cancer Stroke Father History of stomach cancer Social History Alcohol intake: former Patient Tobacco Use Status: Never used Tobacco Female Reproductive History Menstrual Age of Menarche: 11 Review of Systems Const Reports fatigue, Denies fever(s), Denies night sweats, Denies poor appetite and Denies weight loss ENT Reports Normal hearing present, Denies dental pain, Denies dysphagia, Reports dizziness, Denies hearing loss, Denies mouth pain, Denies odynophagia, Denies throat swelling, Denies tongue swelling and Reports other (Dentition adequate) Card Reports lightheadedness Resp Reports no additional complaints GI Details: Denies abdominal pain, Denies melena, Reports bloating, Denies hematochezia, Denies constipation, Denies GI cramping, Denies dysphagia, Denies excessive flatus, Denies early satiety, Reports heartburn, Denies diarrhea, Denies nausea, Denies odynophagia, Denies vomiting and Denies hematemesis Skin/Breast Denies pruritus, Denies lesions, Denies rash and Denies jaundice Neuro Reports Normal hearing present, Denies Abnormal speech present and Reports dizziness Endo Reports fatigue Aller/Immun Denies throat swelling and Denies tongue swelling Physical Exam Vital Signs: Last Vital Signs Pulse 74 03/08/25 09:49 BP 100/64 03/08/25 09:49 Pulse Ox 99 03/08/25 09:49 Oxygen Delivery Method Room Air 03/08/25 09:49 BMI result Body Mass Index 24.1 Const General: cooperative, no acute distress, well developed and well groomed Nutritional Appearance: average body habitus and well nourished Orientation/consciousness: oriented to person, oriented to place and oriented to time Limitations: No language barrier HEENT Head: Yes normocephalic and Yes atraumatic Eyes General: appearance normal, both eyes and all related structures Pupils: Equal, round and reactive pupils present Neck Neck: Yes normal visual inspection and Yes no lymphadenopathy Thyroid: Thyroid normal Resp Effort & Inspection: normal respiratory effort and able to speak in complete sentences Auscultation: clear to auscultation bilaterally Cardio Rate: regular rate Rhythm: regular rhythm Heart sounds: Normal, physiologic split S2 sound present Peripheral pulses: radial pulses present and posterior tibial pulses present GI Inspection: No distended and No Abdominal panniculus present Palpation (GI): Soft to palpation, nontender, no guarding, not rigid and No hepatosplenomegaly present Percussion: Yes normal to percussion Auscultation: normal bowel sounds Rectal Exam - Female: deferred Skin General skin exam: no rashes or lesions noted, turgor normal, skin not dry, no jaundice, No spider nevi and no striae Rashes: no rashes Nails: normal Neuro General: oriented to person, oriented to place and oriented to time Cranial nerves: Yes Equal, round and reactive pupils present and Yes Normal hearing present Speech: No Abnormal speech present Extrem General: Yes normal to inspection, No clubbing, No cyanosis and No edema Psych Appearance: grossly normal and well kempt Mental Status: mental status grossly normal Speech and movement: Normal speech and movement present Affect: normal affect Attitude: cooperative Thought process: Normal thought process present and not confabulating Thought content: Normal thought content present Insight: Fair insight present (Psych) and Limited insight present (Psych) Judgement: Fair judgement present (Psych) and Limited judgement present (Psych) Assessment & Plan Assessment & Plan (1) GERD (gastroesophageal reflux disease): Comment: 2017 scope focal esophagitis Code(s): K21.9 - Gastro-esophageal reflux disease without esophagitis Category: Medical (2) Family history of colon cancer: Comment: Father CRC age 62 so likely onset age 52; 2017 scope hemorrhoids only repeat age 42 Code(s): Z80.0 - Family history of malignant neoplasm of digestive organs Category: Medical (3) Fatigue: Code(s): R53.83 - Other fatigue Category: Medical Plan Her established medical regimen had been omeprazole 40 mg in the morning and famotidine 20 mg in the evening. She continues to feel that the medications are helpful for her, however she says she continues to have some breakthrough about 3 times a week. She can not seem to relate this to type of food eaten and she says she only occasionally has constipation. Because she has had trouble with bloating in the past (she was addressing this with digestive enzymes) I think I will give her a trial of simethicone to see if mobilizing the gas helps her with her breakthrough. She is also complaining of fatigue and dizziness. She says she continues on her twice a day oral iron supplement but that her primary care provider has not checked her labs in quite some time. Because it is concerning to her I will get a CBC, Chem panel, vitamin B12 and folate and vitamin-D along with the thyroid. Return office visit in 6-8 weeks Orders: Orders Complete Blood Count Auto Diff Today R53.83 - Other fatigue Comprehensive Met. Panel Today R53.83 - Other fatigue TSH reflex Free T4 Today R53.83 - Other fatigue Vitamin B12 and Folate Today R53.83 - Other fatigue Vitamin D 25-OH Total Today R53.83 - Other fatigue Medications: New simethicone after meals 180 mg PO QID 120 caps 3RF 30 days famotidine (Pepcid) 40 mg PO BEDTIME 30 tabs 6RF Refilled omeprazole 40 mg PO DAILY 30 caps 6RF Discontinued famotidine Discontinued Reason: Doctor's Order 20 mg PO DAILY 30 tabs 6RF Coding Level of Care Code Est Pt Level 3 (31605) Diagnoses GERD (gastroesophageal reflux disease) K21.9 Family history of colon cancer Z80.0 Fatigue R53.83
[2025-03-08 09:49] VITALS: BP 100/64; PULSE 74; O2SAT 99; BMI 24.1
--- OUTSIDE RECORDS SUMMARY | 2025-03-08 10:52 | XMS_ITS | Encounter Summary ---
Author Organization [employer] Address [address] [place] [address] [address] [place] [address] Care Team Providers Care Protection Chief Industrial Plant Name Role Phone Cyndie Viveros Janessa TIRE BUILDER Primary Care Provider Adina Afia Osuna ANP Primary Care Provider [phone] Mariposa Farias SAND AND GRAVEL PLANT OPERATOR Primary Care Provider [phone] Encounter Details Date Type Department Care Team (Late st Contact Info) Description 12/18/2022 Telephone [facility] [address] [place], [place] [id number] Rick Dodie [address] [place] [address] Social History Tobacco Use Types Packs/Day Years [...] who called. I called upstairs but believe hotel front desk clerk is with patients no answer. Pls return call to patient for scheduling DR documented in this encounter Plan of Treatment Not on file documented as of this encounter Visit Diagnoses Not on filedocumented in this encounter Care Teams Protection Chief Industrial Plant Relationship Specialty Start Date End Date Cyndie Viveros FNP PCP - General Family Medicine 12/23/21 02/03/23 Afia Veliz ANP [address] [place] [address] PCP - General Family Medicine 02/04/23 07/17/23 Mariposa Farias NP [address] [place] [address] PCP - General Family Medicine 07/18/23 documented as of this encounter
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
--- OUTSIDE RECORDS SUMMARY | 2025-03-08 10:52 | XMS_ITS | Clinical Summary ---
Author Organization [facility] Address [address] [place] [address] Phone Care Team Providers Care Decal Applier Name Role Phone Physician, No Pcp Primary [...] 86 03/24/2024 2:09 PM EST Temperature 36.6 C (97.9 F) 03/24/2024 2:09 PM EST Respiratory Rate 16 03/24/2024 2:09 PM EST Oxygen Saturation 98% 03/24/2024 2:09 PM EST Inhaled Oxygen Concentration - - Weight 67.1 kg (148 lb) 03/24/2024 2:09 PM EST Height 160 cm (5' 3 ) 03/24/2024 2:09 PM EST Body Mass Index 26.22 03/24/2024 2:09 PM EST Plan of Treatment Health Maintenance Due Date Last Done Comments Cholesterol Screening (Lipid Panel) 05/23/2023 Hepatitis C Screening 05/23/2023 Social Influencers of Health Screening 05/23/2023 Hypertension/CHF/CAD Annual BMP Blood Test 03/24/2024 Depression Screening 04/28/2024 COVID-19 Vaccine ( - season) 2024 05/02/2021, 07/12/2020 Influenza Vaccine (#1) 2024 , 02/23/2021, 02/12/2019, Additional history exists Cervical Cancer Screening: Pap Smear 07/31/2026 08/01/2023 DTaP,Tdap,and Td Vaccines (4 - Td or Tdap) 02/12/2029 02/12/2019, 09/15/2013, 07/04/2012 RSV Immunization Adult Patients (1 - 1-dose 75+ series) 2063 HPV Vaccines Completed 02/01/2015, 09/2013, 09/15/2013 MMR [...] 5 Years) and At-Risk Patients (6 to 49 Years) Aged Out No longer eligible based on patient's age to complete this topic RSV Immunization Patients Under 20 months Aged Out No longer eligible based on patient's age to complete this topic Insurance [employer] PLAN II [place] [id number] Care Teams Decal Applier Relationship Specialty Start Date End Date Physician, No Pcp PCP - General 03/24/24
--- OUTSIDE RECORDS SUMMARY | 2025-03-08 10:52 | XMS_ITS | Encounter Summary ---
Author Organization [employer] Address [address] [place] [address] [address] [place] [address] Care Team Providers Care Stockroom Selector Name Role Phone Cyndie Viveros Primary Care Provider Adina Afia Osuna Primary Care Provider [phone] Mariposa Farias NP Primary Care Provider [phone] Encounter Details Date Type Department Care Team (Late st Contact Info) Description 01/22/2023 Orders Only [facility] [address] [place] [address] Stephanie Cedeño LPN Social History Tobacco Use [...] on filedocumented in this encounter Care Teams Stockroom Selector Relationship Specialty Start Date End Date Cyndie Viveros FNP PCP - General Family Medicine 12/23/21 02/03/23 Afia Veliz ANP [address] [place] [address] PCP - General Family Medicine 02/04/23 07/17/23 Mariposa Farias NP [address] [place] [address] PCP - General Family Medicine 07/18/23 documented as of this encounter
--- OUTSIDE RECORDS SUMMARY | 2025-03-08 10:52 | XMS_ITS | Encounter Summary ---
Author Organization [employer] Address [address] [place] [address] 7 [place] [address] Care Team Providers Care Supervisor Inspection Department Name Role Phone Afia Veliz Primary Care Provider [phone] Mariposa Farias NP Primary Care Provider Reason for Visit * Reason Onset Date Comments Appointment Request 07/04/2023 Encounter Details Date Type Department Care Team ([facility] st Contact Info) Description 07/04/2023 Telephone [facility] [address] [place], [place] [id number] Afia Veliz ANP [address] [place] [address] Appointment Request Social History Tobacco Use Types [...] would also like to beseen by a HELP DESK SUPERVISOR patient states there is no concerns at the moment documented in this encounter Plan of Treatment Not on file documented as of this encounter Visit Diagnoses Not on filedocumented in this encounter Care Teams Supervisor Inspection Department Relationship Specialty Start Date End Date Afia Veliz ANP [address] [place] [address] PCP - General Family Medicine 02/04/23 07/17/23 Mariposa Farias NP [address] [place] [address] PCP - General Family Medicine 07/18/23 documented as of this encounter
--- OUTSIDE RECORDS SUMMARY | 2025-03-08 10:52 | XMS_ITS | Encounter Summary ---
Author Organization [employer] Address [address] [place] [address] [address] [place] [address] Care Team Providers Care Oxygen Plant Operator Name Role Phone Cyndie Viveros Primary Care Provider Adina Afia Osuna ANP Primary Care Provider [phone] Mariposa Farias NP Primary Care Provider [phone] Encounter Details Date Type Department Care Team (Latest Contact Info) Description 04/11/2021 Abstract [facility] CONVERSIONS Dental, Provider, DDS Social History Tobacco [...] on filedocumented in this encounter Care Teams Oxygen Plant Operator Relationship Specialty Start Date End Date Cyndie Viveros FNP PCP - General Family Medicine 12/23/21 02/03/23 Afia Veliz ANP [address] [place] [address] PCP - General Family Medicine 02/04/23 07/17/23 Mariposa Farias NP [address] [place] [address] PCP - General Family Medicine 07/18/23 documented as of this encounter
--- OUTSIDE RECORDS SUMMARY | 2025-03-08 10:52 | XMS_ITS | Encounter Summary ---
Author Organization [employer] Address [address] [place] [address] Care Team Providers Care Pneumatic Tube Operator Name Role Phone KellyMariposa shaw JEF Primary Care Provider [phone] Encounter Details Date Type Department Care Team (Late st Contact Info) Description 01/01/2024 Telephone [facility] [address] [place] [address] Aris Putnam, KASEY [address] [place] [address] Social History Tobacco Use Types Packs/Day Years [...] on filedocumented in this encounter Care Teams Pneumatic Tube Operator Relationship Specialty Start Date End Date Mariposa Farias NP [address] [place] [id number] PCP - General Family Medicine 07/18/23 documented as of this encounter
--- OUTSIDE RECORDS SUMMARY | 2025-03-08 10:52 | XMS_ITS | Encounter Summary ---
Author Organization [employer] Address [address] [place] [address] [address] [place] [address] Care Team Providers Care Forensic Artist Name Role Phone Cyndie Viveros Primary Care Provider Adina Afia Osuna Primary Care Provider [phone] Mariposa Farias NP Primary Care Provider [phone] Encounter Details Date Type Department Care Team (Late st Contact Info) Description 07/01/2022 Orders Only [facility] [address] [place] [address] Rosa Reno LPN Social History Tobacco Use [...] on filedocumented in this encounter Care Teams Forensic Artist Relationship Specialty Start Date End Date Cyndie Viveros FNP PCP - General Family Medicine 12/23/21 02/03/23 Afia Veliz ANP [address] [place] [address] PCP - General Family Medicine 02/04/23 07/17/23 Mariposa Farias NP [address] [place] [id number] PCP - General Family Medicine 07/18/23 documented as of this encounter
== END 2025-03-08 10:22 | disposition home or self-care (01) ==
LOC: HO.HGI 09:40
PROVIDERS: PCP Nurse Practitioner Family; Visit Provider Nurse Practitioner
DX: K21.9 Gastro-esophageal reflux disease without esophagitis (principal); Z80.0 Family history of malignant neoplasm of digestive organs; R53.83 Other fatigue
CPT/HCPCS: 99213